=== PATIENT | female | born 1980 | race Caucasian/White ===

== ENCOUNTER → 2016-04-09 | Outpatient (CLI) | payer BC ==
[2016-04-09 20:51] LABS: ALT 50 U/L (9-52); AST 30 U/L (14-36); Alkaline Phosphatase 65 U/L (38-126); Anion Gap 14 mmol/L; Blood Urea Nitrogen 13 mg/dL (7-17); Calcium 9.4 mg/dL (8.4-10.2); Carbon Dioxide 23 mmol/L (22-30); Chloride 103 mmol/L (98-107); Cholesterol 144 mg/dL (<200); Glucose 74 mg/dL (74-99); HDL Cholesterol 29 mg/dL (40-60); Non-African American GFR(MDRD) >60 (>60 ml/min/1.73 sqM); Potassium 4.5 mmol/L (3.5-5.1); Sodium 140 mmol/L (137-145); Total Bilirubin 0.6 mg/dL (0.2-1.3); Total Protein 7.1 g/dL (6.3-8.2); Triglycerides 108 mg/dL (<150)
== END | disposition home or self-care (01) ==
LOC: MMGSC 09:11
PROVIDERS: ATTEND Family Medicine
DX: E78.5 Hyperlipidemia, unspecified (principal)
CPT/HCPCS: 36415; 80053; 80061

== ENCOUNTER → 2017-04-08 | Outpatient (CLI) | payer BC ==
[2017-04-08 18:53] LABS: ALT 26 U/L (9-52); AST 21 U/L (14-36); Albumin 3.9 g/dL (3.5-5.0); Alkaline Phosphatase 64 U/L (38-126); Anion Gap 13 mmol/L; Blood Urea Nitrogen 16 mg/dL (7-17); Calcium 9.4 mg/dL (8.4-10.2); Carbon Dioxide 23 mmol/L (22-30); Chloride 102 mmol/L (98-107); Cholesterol 184 mg/dL (<200); Glucose 76 mg/dL (74-99); HDL Cholesterol 39 mg/dL (40-60); LDL Cholesterol,Calculated 119 mg/dL (0-99); Potassium 4.4 mmol/L (3.5-5.1); Sodium 138 mmol/L (137-145); Total Bilirubin 0.4 mg/dL (0.2-1.3); Total Protein 6.7 g/dL (6.3-8.2); Triglycerides 130 mg/dL (<150)
== END | disposition home or self-care (01) ==
LOC: MMGSC 09:41
PROVIDERS: ATTEND Family Medicine
DX: E78.5 Hyperlipidemia, unspecified (principal)
CPT/HCPCS: 36415; 80053; 80061

== ENCOUNTER → 2019-04-28 | Outpatient (CLI) | payer BC ==
--- NOTE | 2019-04-29 07:35 | CT ---
EXAMINATION TYPE: CT urogram wo/w con DATE OF EXAM: 04/28/2019 HISTORY: micro hematuria CT DLP: 2963mGycm Automated Exposure Control for Dose Reduction was Utilized. CONTRAST: CT scan of the abdomen and pelvis is performed without oral and without and with IV Contrast, patient injected with 100 mL of Isovue 300. Urogram protocol with 3-D reconstructed images created on an [employer] workstation and reviewed. COMPARISON: Complete abdominal ultrasound May 14, 2012. FINDINGS: KUB: Noncontrast images show no renal calculi bilaterally. Postcontrast images show symmetric cortica l medullary uptake and excretion from both kidneys without concerning solid or cystic renal mass or h ydronephrosis seen bilaterally. Visualized portion of ureters shows satisfactory contrast opacificati on with the exception of a portion of the distal right ureter but no obstructing mass or calculus is identified. There is satisfactory filling of the bladder without intraluminal mass or calculus. LUNG BASES: No significant abnormality is appreciated. LIVER/GB: Gallbladder not seen and presumed surgically absent. PANCREAS: No significant abnormality is seen. SPLEEN: No significant abnormality is seen. ADRENALS: No significant abnormality is seen. BOWEL: Normal-appearing appendix seen from base of cecum extending medially for reference coronal cristiane ge 95 series 10. UTERUS/ADNEXA: Anteverted uterus. LYMPH NODES: No greater than 1cm abdominal or pelvic lymph nodes are appreciated. OSSEOUS STRUCTURES: Somewhat small size bilateral T12 ribs. OTHER: No significant additional abnormality is seen. IMPRESSION: Source of microhematuria is not identified. Fairly unremarkable study.
== END | disposition home or self-care (01) ==
LOC: RADCTMAIN 15:15
PROVIDERS: ATTEND Urology
DX: R31.9 Hematuria, unspecified (principal); Z88.0 Allergy status to penicillin; Z88.1 Allergy status to other antibiotic agents; Z88.2 Allergy status to sulfonamides
CPT/HCPCS: 74178; 74400; Q9967

== ENCOUNTER → 2020-05-17 | Outpatient (CLI) | payer BC ==
[2020-05-17 14:11] VITALS: BP 130/88; PULSE 94; RESP 18; TEMP 99.1; BMI 35.2
--- NOTE | 2020-05-17 14:32 | P.HPBAR ---
Bariatric H&P - History & Physicial H&P Date: 05/17/20 History & Physicial: Visit/CC: initial visit Patient initial contact: Initial weight: Initial weight in pounds: Height: 5 ft 6.75 in Initial BMI: Last weight: Current weight: 101.196 kg Current weight in pounds: 223.10 Current BMI: 35.2 [place] body weight (based on NIH guidelines): 60.668 kg Excess body weight loss: The patient is a 40 year-old F who presents for Bariatric Assessment. DATE OF SERVICE: 05/17/2020 REASON FOR CONSULTATION: Initial bariatric evaluation HISTORY OF PRESENT ILLNESS: Georgia Hairston is a 40-year-old female who comes with lifelong morbid obesity. She is looking into gastrectomy procedures. She has tried Ali, [id number] weight loss tablets, Slim Fast, Metabolife, and Adipex. She did [facility] for weight loss including high protein lifestyle changes. She has been trying to lose weight after the of her children. Her weight became more un-controlled after children. She lost the most weight with restrictive diets. She saw dietitians in the past. Most weight loss was through the [facility] including exercising until she had blood in her stools but the program was not sustainable. Her highest weight was 230 pounds. She lost 40 pounds over 2 years for the [facility]. Her father, uncle, and aunt have troubles their with weight including obesity. No reports of stomach or esophageal cancer. She denies any further blood in her stools. She has infrequent heartburn. She denies ulcerative colitis in the family. No reports of food allergies. She does not have her gallbladder. Her aunt had deep venous thromboses. She denies known heart problems. She reports osteoarthritis including lower back pain, sciatica, osteoarthritis of the knee and ankle and left leg. She has undergone physical therapy. She has sleep apnea. She has hyperlipidemia. She presents me first time in consultation for management of morbid obesity At height of 5 feet 6.75 inches, her ideal body weight is 154 pounds. Her highest weight was 230 pounds, BMI 36.4. She comes in 223 pounds. Her body mass index is 35.2. She is 69 pounds overweight. PAST MEDICAL HISTORY: 1. Morbid obesity due to excess calories 2. Body mass index of 45.0, initial 3. Sleep apnea 4. Hyperlipidemia 5. Osteoarthritis lower back 6. Sciatica 7. Osteoarthritis ankle, left 8. Osteoarthritis knee, left 9. Depressive disorder 10. Hypertensive heart disease 11. Anxiety disorder PAST SURGICAL HISTORY: 1. Cholecystectomy HOME MEDICATIONS: Home Medications Medication Instructions Recorded Confirmed Atorvastatin [Lipitor] 5 mg PO DAILY 05/17/20 05/17/20 Cholecalciferol [Vitamin D3 (25 50 mcg PO DAILY 05/17/20 05/17/20 Mcg = 1000 Iu)] Clindamycin Phos/Benzoyl Perox 1 applic TOPICAL BID PRN 05/17/20 05/17/20 [Benzaclin Gel] Cyanocobalamin (Vitamin B-12) 1,000 mcg PO DAILY 05/17/20 05/17/20 [Vitamin B-12] Desvenlafaxine [Desvenlafaxine ER] 100 mg PO DAILY 05/17/20 05/17/20 Melatonin 10 mg PO DAILY 05/17/20 05/17/20 Multivitamin [Multivitamins Adult 1 each PO DAILY 05/17/20 05/17/20 Gummies] Prazosin [Minipress] 2 mg PO DAILY 05/17/20 05/17/20 Spironolactone [Aldactone] 75 mg PO DAILY 05/17/20 05/17/20 Tretinoin [Tretinoin 0.05%] 1 applic TOPICAL DAILY PRN 05/17/20 05/17/20 buPROPion HCL [Wellbutrin XL] 300 mg PO DAILY 05/17/20 05/17/20 hydrOXYzine HCL 50 mg PO DAILY 05/17/20 05/17/20 metroNIDAZOLE 0.75% CREAM 1 applic TOPICAL BID 05/17/20 05/17/20 [Metrocream] ALLERGIES: Allergies Allergy/AdvReac Type Severity Reaction Status Date / Time Penicillins Allergy Unknown Verified 05/17/20 15:02 sulfamethoxazole Allergy Unknown Verified 05/17/20 15:02 [From Bactrim] trimethoprim [From Bactrim] Allergy Unknown Verified 05/17/20 15:02 SOCIAL HISTORY: No past tobacco use. FAMILY HISTORY: No family history of ulcerative colitis disease or Crohn's disease. Family history of morbid obesity. No lupus in the family. No reports of stomach or esophageal cancer. Her aunt had deep venous thromboses. Her father, uncle, and aunt have troubles their with weight including obesity. REVIEW OF ORGAN SYSTEMS: CONSTITUTIONAL: At height of 5 feet 6.75 inches, her ideal body weight is 154 p ounds. Her highest weight was 230 pounds, BMI 36.4. She comes in 223 pounds. Her body mass index is 35.2. She is 69 pounds overweight. HEENT: Denies any active troubles with vision or hearing. No troubles with swallowing. ENDOCRINE: Denies diabetes. No hypothyroidism. CARDIOVASCULAR: Denies reports of palpitations or heart attacks or chest pain. Has hypertensive heart disease. Has hyperlipidemia RESPIRATORY: Has daytime somnolence. Has asthma. Has sleep apnea GASTROINTESTINAL: Denies any bright red blood per rectum. Past colonoscopies. Has gastroesophageal reflux disease. GENITOURINARY: Denies bladder urgency. No recent blood in urine MUSCULOSKELETAL: Has lower back pain and joint pain. She reports osteoarthritis including lower back pain, sciatica, osteoarthritis of the knee and ankle and left leg. NEURO: No headaches. No seizure disorders. PSYCH: Has depression disorder. No suicidal ideation. Has anxiety disorder. RHEUMATOLOGIC: No lupus. No rheumatoid arthritis. HEMATOLOGIC: Denies any abnormal bleeding or bruising. No past history of DVTs. SKIN: No rash. No skin cancer. PHYSICAL EXAM: VITAL SIGNS: Height 5 foot 6.75 inches, weight 223 pounds. BMI 35.2 GENERAL: Well-developed in no acute distress. HEENT: No scleral icterus. Extraocular movements grossly intact. Hears conversational speech. No nasal drainage. NECK: Supple without lymphadenopathy. CHEST: Nonlabored respirations with equal bilateral excursions. CARDIOVASCULAR: Regular rate and regular rhythm. Distal 2+ pulses. ABDOMEN: Obese, soft, nontender, nondistended. MUSCULOSKELETAL: No clubbing, cyanosis. NEURO: No focal or lateralizing signs. Cranial nerves 2 through 12 grossly within normal limits. PSYCH: Appropriate affect. Alert and oriented to person, place and time. SKIN: Good skin turgor. Well perfused. ASSESSMENT: 1. Morbid obesity due to excess calories 2. Body mass index of 45.0, initial 3. Sleep apnea 4. Hyperlipidemia 5. Osteoarthritis lower back 6. Sciatica 7. Osteoarthritis ankle, left 8. Osteoarthritis knee, left 9. Depressive disorder 10. Hypertensive heart disease 11. Anxiety disorder 12. Family history morbid obesity 13. Family history of DVT PLAN: 1. Surgical options including a band, gastric bypass, sleeve gastrectomy were described. She is looking into the sleeve gastrectomy. 2. Recommend upper endoscopy. 3. Recommend a bariatric metabolic panel to evaluate for micro- including macronutrient deficiencies. 4. For history of daytime somnolence, recommend evaluation and treatment for sleep apnea. 5. Dietary surveillance and counseling was reviewed. Increased protein intake over 65 grams daily advised. 6. Will need cardiac risk assessment. 7. Recommend medical risk assessment. 8. Psych assessment per insurance guidelines. 9. The [place] bariatric surgical collaborative data and outcomes calculator were described with surgical options. [facility] reviewed with risks under 3 to 7% with gastrectomy procedures. Thank you for this consultation. Past Medical History Past Medical History: No Reported History History of Any Multi-Drug Resistant Organisms: None Reported Past Surgical History: Cholecystectomy Past Anesthesia/Blood Transfusion Reactions: No Reported Reaction Past Psychological History: Anxiety, Depression Smoking Status: Never smoker Past Alcohol Use History: Rare Past Drug Use History: None Reported Surgical - Exam Vital Signs Temp Pulse Resp BP 99.1 F 94 18 130/88 05/17/20 14:04 05/17/20 14:04 05/17/20 14:04 05/17/20 14:04 Results - Labs 05/17/20 15:00 05/17/20 15:00 Bariatric Checklist Checklist: Plan: Checklist: EGD: 1. Hiatal hernia: 2. H. Pylori: HgbA1c: Vitamin D: Smoking: Never smoker Primary care physician referral: Dr. Ramos Psychiatry clearance: Cardiology clearance: Sleep study: Diet journal: VTE risk score: VTE risk level: Rehab needs at discharge:
[2020-05-17 15:32] LABS: HCT 43.1 % (34.0-46.0); HGB 14.7 gm/dL (11.4-16.0); MCV 91.2 fL (80.0-100.0); Mean Platelet Volume 6.7; Platelet Count 250 k/uL (150-450); RBC 4.73 m/uL (3.80-5.40); RDW 13.5 % (11.5-15.5); WBC 10.1 k/uL (3.8-10.6)
[2020-05-17 23:30] LABS: Partial Thromboplastin Time 27.1 sec (23.5-31.0); Prothrombin Time 10.9 sec (9.9-11.9)
[2020-05-18 02:12] LABS: Hemoglobin A1C 5.9 % (4.0-6.0)
[2020-05-18 02:46] LABS: % Iron Saturation 27.03 (12.00-45.00); ALT 30 U/L (8-44); AST 24 U/L (13-35); Albumin/Globulin Ratio 2.19 (1.60-3.17); Alkaline Phosphatase 70 U/L (41-126); BUN/Creat Ratio 18.89 Ratio (12.00-20.00); Calcium 10.3 mg/dL (8.7-10.3); Chloride 104 mmol/L (96-109); Chol/HDL Ratio 3.98; Cholesterol 175 mg/dL (0-200); Globulin 2.1 g/dL (1.6-3.3); Glucose 109 mg/dL (70-110); Iron 93 ug/dL (50-170); LDL Cholesterol,Calculated 90.4 mg/dL (0.0-131.0); Non-African American GFR(CKD) 79.4 (60.0-200.0); Potassium 4.3 mmol/L (3.5-5.5); Sodium 140 mmol/L (135-145); Total Bilirubin 0.2 mg/dL (0.3-1.2); Total Iron Binding Capacity 344 ug/dL (228-460); Total Protein 6.7 g/dL (6.2-8.2)
[2020-05-18 02:55] LABS: Ferritin 213.8 ng/mL (10.0-291.0)
[2020-05-18 03:57] LABS: Folate, Serum >24.0 ng/mL
[2020-05-18 13:16] LABS: Zinc, Serum 35 ug/dL (60-130)
[2020-05-19 10:33] LABS: Vitamin A 65 ug/dL (38-106)
[2020-05-19 10:47] LABS: Vit B1(Thiamine) 84 ug/L (38-122)
[2020-05-21 17:51] LABS: Selenium 134 mcg/L (63-160)
== END ==
LOC: BARWHC3 13:18
PROVIDERS: ATTEND Surgery Plastic and Reconstructive Surgery
DX: E66.01 Morbid (severe) obesity due to excess calories (principal); G47.30 Sleep apnea, unspecified; E78.5 Hyperlipidemia, unspecified; M47.9 Spondylosis, unspecified; M54.30 Sciatica, unspecified side; M17.12 Unilateral primary osteoarthritis, left knee; M19.072 Primary osteoarthritis, left ankle and foot; F32.9 Major depressive disorder, single episode, unspecified; I11.9 Hypertensive heart disease without heart failure; F41.9 Anxiety disorder, unspecified; Z83.49 Family history of other endocrine, nutritional and metabolic diseases; Z83.2 Family history of diseases of the blood and blood-forming organs and certain disorders involving the immune mechanism; Z68.35 Body mass index [BMI] 35.0-35.9, adult
CPT/HCPCS: 80053; 80061; 82306; 82525; 82607; 82728; 82746; 83036; 83540; 83550; 83735; 83970; 84100; 84134; 84255; 84425; 84443; 84590; 84630; 85027; 85610; 85730; 93005; 99211

== ENCOUNTER → 2020-05-24 | Outpatient (CLI) | payer BC ==
--- NOTE | 2020-05-24 21:54 | CONS ---
CONSULTATION DATE OF SERVICE: 05/24/2020 40-year-old lady has been evaluated in [facility] for possible obstructive sleep apnea-hypopnea syndrome. HISTORY OF PRESENT ILLNESS SLEEP WAKE EVALUATION: SLEEP SCHEDULE: Patient usual sleep schedule on weekdays from 9 to 9:30 p.m. to 5 a.m. and on weekends from 9:00 to 9:30 p.m. to 8 a.m. FALLING ASLEEP: Sometimes she has problems with falling asleep, has TV set in bedroom. DURING SLEEP: She usually sleeps on the side position. According to her , she snores and has episodes of stopped breathing during sleep. Sometimes she wakes up from sleep gasping for air, grinding teeth and nightmares. Nocturia up to one time at night. DURING THE DAY/SLEEP WAKE EVALUATION: In the morning, patient wakes up tired, falling asleep during the day. Has episodes of depression, anxiety, sexual dysfunction. [place] Sleepiness Scale significantly increased to 14. She may take one nap afternoon. Sometimes may see dreams during nap. No clear history of hypnagogic hallucinations. Nightmares she has practically every night, some improvements after she was started on treatment with . PAST MEDICAL HISTORY: Positive for apnea, hyperlipidemia, anxiety, depression, headaches. PAST SURGICAL HISTORY: Cholecystectomy. MEDICATIONS: Prazosin 2 mg once a day. Hydroxyzine 50 mg once a day, and extended release 100 mg once a day. Spironolactone 75 mg once daily, bupropion 300 mg once a day, atorvastatin 5 mg once a day, vitamins and melatonin. SOCIAL HISTORY: Negative for smoking or using alcohol. FAMILY HISTORY: High cholesterol. REVIEW OF SYSTEMS: Awakenings from sleep, sleepiness during the day, snoring, episodes of stopped breathing during sleep, nightmares. PHYSICAL EXAMINATION: GENERAL: lady without distress. BP 166/95, HR 93, RR 12, height 5 feet 7-1/2 inches, weight 226.4, temperature 98.7, oxygen saturation at room air 96%, BMI 34.8. Oropharynx: Big uvula. Wide pillars. Small oropharyngeal air space. Neck 15.5 inches in circumference. NECK: Supple, no JVD. Thyroid is not palpable. LUNGS: Clear to percussion and to auscultation. Good air exchange. No wheezing or rhonchi. HEART: S1, S2 regular. No murmurs, gallops, or rubs. ABDOMEN: Slightly obese. Soft and nontender. Bowel sounds are present. No organomegaly appreciated. EXTREMITIES: No clubbing or cyanosis. MOUNTAIN GUIDE: Awake, alert, and oriented X3. Cranial nerves 2 to 7 intact. There is no fasciculation or atrophy. noted. No focal deficits observed. IMPRESSION: 1. Snoring, witnessed episodes of stopped breathing during sleep. Small oropharyngeal air space. Sleepiness, obstructive sleep apnea-hypopnea syndrome. 2. Nightmares. 3. [place] Sleepiness Scale significantly increased to 14. Differential diagnosis should include hypersomnia if sleep study will be negative for obstructive sleep apnea-hypopnea syndrome. 4. Hypertension in the office. 5. History of apnea. 6. Hyperlipidemia. 7. Anxiety. 8. Depression. 9. Episodes of headaches. 10.Status post cholecystectomy. PLAN: 1. Home sleep apnea test for evaluation of patient's breathing during sleep. 2. Following plan after reviewing results of sleep study. If sleep study will be negative, may consider PSG with MSLT after discussing the results of the sleep study with the patient. 3. Preferable position during sleep on the side. 4. No driving if patient feels any sleepiness. 5. I will see patient for follow up visit to explain results of testing and following plan. Thank you very much for referring this patient for consultation. Sincerely, Don Sandoval MD, PhD, FAASM Diplomat of [employer] [employer] Customer Retention Representative of [facility] [place] MMODL / IJN: [id number] /
== END | disposition home or self-care (01) ==
CPT/HCPCS: 99211

== ENCOUNTER 2020-07-03 06:52 | Day surgery (SDC) | payer BC ==
[2020-06-28 15:20] VITALS: BMI 36.6
[~2020-07-03 06:52] MED LIST: LACTATED RINGERS 1,000 ML IV SCH
[2020-07-03 07:18] VITALS: RESP 16; TEMP 97.4
--- NOTE | 2020-07-03 07:42 | P.GSHP ---
History of Present Illness H&P Date: 07/03/20 CHIEF COMPLAINT: GERD HISTORY OF PRESENT ILLNESS: The patient is a 40-year-old female who presents reports gastroesophageal reflux disease. Upper endoscopy was offered for further evaluation and management. PAST MEDICAL HISTORY: Please see list. PAST SURGICAL HISTORY: Please see list. MEDICATIONS: Please see list. ALLERGIES: Please see list. SOCIAL HISTORY: No illicit drug use FAMILY HISTORY: No reports of Crohn disease or ulcerative colitis. REVIEW OF ORGAN SYSTEMS: CONSTITUTIONAL: No reports of fevers or chills. GI: Denies any blood in stools or constipation. PHYSICAL EXAM: VITAL SIGNS: Stable GENERAL: Well-developed and pleasant in no acute distress. HEENT: No scleral icterus. Extraocular movements grossly intact. Moist buccal mucosa. NECK: Supple without lymphadenopathy. CHEST: Unlabored respirations. Equal bilateral excursions. CARDIOVASCULAR: Regular rate and rhythm. Distal 2+ pulses. ABDOMEN: Soft, nondistended. MUSCULOSKELETAL: No clubbing, cyanosis, or edema. ASSESSMENT: 1. Gastroesophageal reflux disease PLAN: 1. Recommend proceeding with an upper endoscopy Past Medical History Past Medical History: Hyperlipidemia, Hypertension History of Any Multi-Drug Resistant Organisms: None Reported Past Surgical History: Cholecystectomy Past Anesthesia/Blood Transfusion Reactions: No Reported Reaction Smoking Status: Never smoker - Past Family History Mother Family Medical History: No Reported History Medications and Allergies Home Medications Medication Instructions Recorded Confirmed Type Atorvastatin [Lipitor] 5 mg PO HS 05/17/20 06/28/20 History Cholecalciferol [Vitamin D3 (25 50 mcg PO DAILY 05/17/20 06/28/20 History Mcg = 1000 Iu)] Clindamycin Phos/Benzoyl Perox 1 applic TOPICAL BID PRN 05/17/20 06/28/20 History [Benzaclin Gel] Cyanocobalamin (Vitamin B-12) 1,000 mcg PO DAILY 05/17/20 06/28/20 History [Vitamin B-12] Desvenlafaxine [Desvenlafaxine ER] 100 mg PO HS 05/17/20 06/28/20 History Melatonin 10 mg PO DAILY 05/17/20 06/28/20 History Multivitamin [Multivitamins Adult 1 each PO DAILY 05/17/20 06/28/20 History Gummies] Prazosin [Minipress] 2 mg PO HS 05/17/20 06/28/20 History Spironolactone [Aldactone] 75 mg PO DAILY 05/17/20 06/28/20 History Tretinoin [Tretinoin 0.05%] 1 applic TOPICAL DAILY PRN 05/17/20 06/28/20 History buPROPion HCL [Wellbutrin XL] 300 mg PO DAILY 05/17/20 06/28/20 History hydrOXYzine HCL 50 mg PO DAILY 05/17/20 06/28/20 History metroNIDAZOLE 0.75% CREAM 1 applic TOPICAL BID PRN 05/17/20 06/28/20 History [Metrocream] Cryselle-28 1 tablet PO DAILY 06/28/20 06/28/20 History Allergies Allergy/AdvReac Type Severity Reaction Status Date / Time Penicillins Allergy Rash/Hives Verified 07/03/20 07:19 sulfamethoxazole Allergy Rash/Hives Verified 07/03/20 07:19 [From Bactrim] trimethoprim [From Bactrim] Allergy Rash/Hives Verified 07/03/20 07:19 Surgical - Exam Vital Signs Temp Pulse Resp BP Pulse Ox 97.4 F L 104 H 16 155/90 97 07/03/20 07:17 07/03/20 07:17 07/03/20 07:17 07/03/20 07:17 07/03/20 07:17
[2020-07-03] MEDS ORDERED: PROPOFOL 10 MG/ML 20 ML VIAL IV ONE (07:59)
[2020-07-03] MEDS ORDERED: GLYCOPYRROLATE 0.2 MG/ML 2 ML VIAL ONE (07:59)
[2020-07-03] MEDS ORDERED: LIDOCAINE 1% INJ 10MG/ML (20 ML MDV) ONE (07:59)
--- NOTE | 2020-07-03 08:13 | P.PCN ---
Date of Procedure: 07/03/20 Description of Procedure: PREOPERATIVE DIAGNOSIS: Gastroesophageal reflux disease. Morbid obesity. POSTOPERATIVE DIAGNOSIS: Morbid obesity. Gastritis. Gastroesophageal reflux disease. OPERATION: Esophagogastroduodenoscopy with biopsies along antrum. SURGEON: Evi Chowdary MD ANESTHESIA: MAC. INDICATIONS: The patient is a 40-year-old female who presents with a history of reflux disease. Benefits and risks of the procedure were described. Informed consent was obtained. DESCRIPTION: The patient was brought into the endoscopy suite and laid in the left lateral decubitus position. An Olympus gastroscope was passed along the posterior oropharynx down to the distal esophagus where the squamocolumnar junction was encountered at 38 cm from the incisors. The stomach was entered and no bile reflux was found. Additional findings are listed below. Biopsies with cold forceps were obtained of the antrum. The first through third portion of the duodenum was examined and unremarkable. Retroflexion of the scope confirmed Hill grade 1 lower esophageal valve. The squamocolumnar junction demonstrated no LA grade A erosive esophagitis. The stomach was desufflated. The patient tolerated the procedure well. FINDINGS: Squamocolumnar junction 38 cm from the incisors. Diaphragmatic hiatus at 38 cm. Hill grade 2 lower esophageal valve. No LA grade A erosive esophagitis. No active duodenitis. Chronic gastritis RECOMMENDATIONS: Upper endoscopy as needed. Plan - Discharge Summary Discharge Rx Participant: No New Discharge Prescriptions: Continue Multivitamin [Multivitamins Adult Gummies] 1 each PO DAILY metroNIDAZOLE 0.75% CREAM [Metrocream] 1 applic TOPICAL BID PRN PRN Reason: Acne Tretinoin [Tretinoin 0.05%] 1 applic TOPICAL DAILY PRN PRN Reason: See Comments buPROPion HCL [Wellbutrin XL] 300 mg PO DAILY Prazosin [Minipress] 2 mg PO HS Desvenlafaxine [Desvenlafaxine ER] 100 mg PO HS hydrOXYzine HCL 50 mg PO DAILY Spironolactone [Aldactone] 75 mg PO DAILY Cyanocobalamin (Vitamin B-12) [Vitamin B-12] 1,000 mcg PO DAILY Cholecalciferol [Vitamin D3 (25 Mcg = 1000 Iu)] 50 mcg PO DAILY Melatonin 10 mg PO DAILY Clindamycin Phos/Benzoyl Perox [Benzaclin Gel] 1 applic TOPICAL BID PRN PRN Reason: See Comments Atorvastatin [Lipitor] 5 mg PO HS Crylle-28 1 tablet PO DAILY Discharge Medication List Atorvastatin [Lipitor] 5 mg PO HS 05/17/20 [History] Cholecalciferol [Vitamin D3 (25 Mcg = 1000 Iu)] 50 mcg PO DAILY 05/17/20 [History] Clindamycin Phos/Benzoyl Perox [Benzaclin Gel] 1 applic TOPICAL BID PRN 05/17/20 [History] Cyanocobalamin (Vitamin B-12) [Vitamin B-12] 1,000 mcg PO DAILY 05/17/20 [History] Desvenlafaxine [Desvenlafaxine ER] 100 mg PO HS 05/17/20 [History] Melatonin 10 mg PO DAILY 05/17/20 [History] Multivitamin [Multivitamins Adult Gummies] 1 each PO DAILY 05/17/20 [History] Prazosin [Minipress] 2 mg PO HS 05/17/20 [History] Spironolactone [Aldactone] 75 mg PO DAILY 05/17/20 [History] Tretinoin [Tretinoin 0.05%] 1 applic TOPICAL DAILY PRN 05/17/20 [History] buPROPion HCL [Wellbutrin XL] 300 mg PO DAILY 05/17/20 [History] hydrOXYzine HCL 50 mg PO DAILY 05/17/20 [History] metroNIDAZOLE 0.75% CREAM [Metrocream] 1 applic TOPICAL BID PRN 05/17/20 [History] Cryselle-28 1 tablet PO DAILY 06/28/20 [History] [facility]Ref[place] [place] Patient Instructions/Handouts: Gastritis (DC) Discharge Disposition: HOME SELF-CARE
[2020-07-03 08:33] VITALS: BP 132/87; PULSE 88
== END 2020-07-03 08:58 | disposition home or self-care (01) ==
LOC: ORWHC2ENDO 06:52
PROVIDERS: ATTEND Surgery Plastic and Reconstructive Surgery
DX: K29.50 Unspecified chronic gastritis without bleeding (principal); K21.9 Gastro-esophageal reflux disease without esophagitis; E66.01 Morbid (severe) obesity due to excess calories; I10 Essential (primary) hypertension; E78.5 Hyperlipidemia, unspecified; Z79.899 Other long term (current) drug therapy; Z88.0 Allergy status to penicillin; Z88.2 Allergy status to sulfonamides
CPT/HCPCS: 81025; 88305; 43239; J2001; J2704

== ENCOUNTER → 2020-07-12 | Outpatient (CLI) | payer BC ==
[2020-07-12 14:02] VITALS: BP 153/107; PULSE 108; RESP 18; TEMP 98.2; BMI 35.8
--- NOTE | 2020-07-12 14:28 | P.PN ---
Subjective Progress Note Date: 07/12/20 DATE OF SERVICE: 07/12/2020 CHIEF COMPLAINT: Morbid obesity HISTORY OF PRESENT ILLNESS: Georgia Hairston is a 40-year-old female who has been trying to lose weight after the of her children. Her weight became more un-controlled after children. As a result of her morbid obesity, she has developed osteoarthritis including lower back, sciatica, osteoarthritis of the knee and ankle and left leg. She has sleep apnea. She has hyperlipidemia. She completed a stress echo and is in 3 months medical supervised weight loss. She is looking into the gastric bypass. At height of 5 feet 6.75 inches, her ideal body weight is 154 pounds. Her highest weight was 230 pounds, BMI 36.4. She comes in 227 pounds from 223 pounds, 2 months ago. She has gained 4 pounds in 2 months. Her body mass index is 35.8. She is 73 pounds overweight. PAST MEDICAL HISTORY: 1. Morbid obesity due to excess calories 2. Body mass index of 36.4, initial 3. Sleep apnea 4. Hyperlipidemia 5. Osteoarthritis lower back 6. Sciatica 7. Osteoarthritis ankle, left 8. Osteoarthritis knee, left 9. Depressive disorder 10. Hypertensive heart disease 11. Anxiety disorder PAST SURGICAL HISTORY: 1. Cholecystectomy HOME MEDICATIONS: Home Medications Medication Instructions Recorded Confirmed Atorvastatin [Lipitor] 5 mg PO DAILY 05/17/20 05/17/20 Cholecalciferol [Vitamin D3 (25 50 mcg PO DAILY 05/17/20 05/17/20 Mcg = 1000 Iu)] Clindamycin Phos/Benzoyl Perox 1 applic TOPICAL BID PRN 05/17/20 05/17/20 [Benzaclin Gel] Cyanocobalamin (Vitamin B-12) 1,000 mcg PO DAILY 05/17/20 05/17/20 [Vitamin B-12] Desvenlafaxine [Desvenlafaxine ER] 100 mg PO DAILY 05/17/20 05/17/20 Melatonin 10 mg PO DAILY 05/17/20 05/17/20 Multivitamin [Multivitamins Adult 1 each PO DAILY 05/17/20 05/17/20 Gummies] Prazosin [Minipress] 2 mg PO DAILY 05/17/20 05/17/20 Spironolactone [Aldactone] 75 mg PO DAILY 05/17/20 05/17/20 Tretinoin [Tretinoin 0.05%] 1 applic TOPICAL DAILY PRN 05/17/20 05/17/20 buPROPion HCL [Wellbutrin XL] 300 mg PO DAILY 05/17/20 05/17/20 hydrOXYzine HCL 50 mg PO DAILY 05/17/20 05/17/20 metroNIDAZOLE 0.75% CREAM 1 applic TOPICAL BID 05/17/20 05/17/20 [Metrocream] ALLERGIES: Allergies Allergy/AdvReac Type Severity Reaction Status Date / Time Penicillins Allergy Unknown Verified 05/17/20 15:02 sulfamethoxazole Allergy Unknown Verified 05/17/20 15:02 [From Bactrim] trimethoprim [From Bactrim] Allergy Unknown Verified 05/17/20 15:02 SOCIAL HISTORY: No past tobacco use. FAMILY HISTORY: No family history of ulcerative colitis disease or Crohn's disease. Family history of morbid obesity. No lupus in the family. No reports of stomach or esophageal cancer. Her aunt had deep venous thromboses. Her father, uncle, and aunt have troubles their with weight including obesity. REVIEW OF ORGAN SYSTEMS: CONSTITUTIONAL: At height of 5 feet 6.75 inches, her ideal body weight is 154 pounds. Her highest weight was 230 pounds, BMI 36.4. She comes in 223 pounds. Her body mass index is 35.2. She is 69 pounds overweight. HEENT: Denies any active troubles with vision or hearing. No troubles with swallowing. ENDOCRINE: Denies diabetes. No hypothyroidism. CARDIOVASCULAR: Denies reports of palpitations or heart attacks or chest pain. Has hypertensive heart disease. Has hyperlipidemia RESPIRATORY: Has daytime somnolence. Has asthma. Has sleep apnea GASTROINTESTINAL: Denies any bright red blood per rectum. Past colonoscopies. Has gastroesophageal reflux disease. GENITOURINARY: Denies bladder urgency. No recent blood in urine MUSCULOSKELETAL: Has lower back pain and joint pain. She reports osteoarthritis including lower back pain, sciatica, osteoarthritis of the knee and ankle and left leg. NEURO: No headaches. No seizure disorders. PSYCH: Has depression disorder. No suicidal ideation. Has anxiety disorder. RHEUMATOLOGIC: No lupus. No rheumatoid arthritis. HEMATOLOGIC: Denies any abnormal bleeding or bruising. No past history of DVTs. SKIN: No rash. No skin cancer. PHYSICAL EXAM: VITAL SIGNS: Height 5 foot 6.75 inches, weight 226 pounds. BMI 35.8 Vital Signs Temp 98.2 F 07/12/20 13:56 Pulse 108 H 07/12/20 13:56 Resp 18 07/12/20 13:56 BP 153/107 07/12/20 13:56 Pulse Ox GENERAL: Well-developed in no acute distress. HEENT: No scleral icterus. Extraocular movements grossly intact. Hears conversational speech. No nasal drainage. NECK: Supple without lymphadenopathy. CHEST: Nonlabored respirations with equal bilateral excursions. CARDIOVASCULAR: Tachycardic ABDOMEN: Obese, soft, nontender, nondistended. MUSCULOSKELETAL: No clubbing, cyanosis. NEURO: No focal or lateralizing signs. Cranial nerves 2 through 12 grossly within normal limits. PSYCH: Appropriate affect. Alert and oriented to person, place and time. SKIN: Good skin turgor. Well perfused. LABS: Triglycerides elevated, Zinc is low, Hgb A1c elevated 5.9% EKG: Abnormal. Left atrial enlargement, incomplete right bundle branch block REPORTS: Sleep study with excessive daytime sleepiness. EGD FINDINGS: Squamocolumnar junction 38 cm from the incisors. Diaphragmatic hiatus at 38 cm. Hill grade 2 lower esophageal valve. No LA grade A erosive esophagitis. No active duodenitis. Chronic gastritis Final Pathologic Diagnosis GASTRIC ANTRUM, BIOPSY: Minimal chronic gastritis. Helicobacter pylori organisms are not identified on routine H+E sections. ASSESSMENT: 1. Morbid obesity due to excess calories 2. Body mass index of 36.4 initial to 35.8 3. Excessive daytime sleepiness 4. Hyperlipidemia 5. Osteoarthritis lower back 6. Sciatica 7. Osteoarthritis ankle, left 8. Osteoarthritis knee, left 9. Depressive disorder 10. Hypertensive heart disease 11. Anxiety disorder 12. Family history morbid obesity 13. Family history of DVT 14. Abnormal EKG 15. Zinc deficiency 16. Hypertriglyceridemia 17. Chronic gastritis. PLAN: 1. Her EKG is abnorma and as a stress echo. Cardiology clearance is pending. 2. Her Hgb A1c is elevated for diabetes risk. Adjust diet to low carbohydrate, high protein intake, 65 grams daily. 3. Zinc 50 mg daily advised. 4. Continue with medical supervised weight loss. 5. She is looking into the gastric bypass and recommend maintaining at least 223 pounds. Objective - Vital Signs Vital signs: Vital Signs Temp 98.2 F 07/12/20 13:56 Pulse 108 H 07/12/20 13:56 Resp 18 07/12/20 13:56 BP 153/107 07/12/20 13:56 Pulse Ox Intake & Output 07/11/20 07/12/20 07/12/20 18:59 06:59 18:59 Weight 102.965 kg
== END | disposition home or self-care (01) ==
LOC: BARWHC3 13:15
PROVIDERS: ATTEND Surgery Plastic and Reconstructive Surgery
DX: E66.01 Morbid (severe) obesity due to excess calories (principal); E78.5 Hyperlipidemia, unspecified; M47.9 Spondylosis, unspecified; M54.30 Sciatica, unspecified side; M19.072 Primary osteoarthritis, left ankle and foot; M17.12 Unilateral primary osteoarthritis, left knee; F32.9 Major depressive disorder, single episode, unspecified; I11.9 Hypertensive heart disease without heart failure; F41.9 Anxiety disorder, unspecified; E78.1 Pure hyperglyceridemia; R94.31 Abnormal electrocardiogram [ECG] [EKG]; K29.50 Unspecified chronic gastritis without bleeding; Z88.1 Allergy status to other antibiotic agents; Z88.2 Allergy status to sulfonamides; Z88.0 Allergy status to penicillin; Z83.49 Family history of other endocrine, nutritional and metabolic diseases; Z82.49 Family history of ischemic heart disease and other diseases of the circulatory system; Z68.36 Body mass index [BMI] 36.0-36.9, adult
CPT/HCPCS: 99211

== ENCOUNTER → 2020-08-17 | Outpatient (CLI) | payer BC ==
--- NOTE | 2020-08-17 22:15 | SFUN ---
SLEEP CENTER FOLLOW UP NOTE DATE OF SERVICE: 08/17/2020 40-year-old lady has been followed in Sleep Center to discuss results of the sleep studies and following plan. Recently the patient had polysomnogram with multiple sleep latency test. Polysomnogram again did not show any abnormalities of respiration. Total apnea-hypopnea index 0. Lowest oxygen level was 90.8%. At the same time EMG showed 44.3 periodic limb movements per hours, 14.1 microarousals per hour. Multiple sleep latency test on the following day consisted from 5 naps and mean sleep latency by 5 naps was totally normal at 12 minutes. If count only first 4 naps, it will be 9.975 minutes, which is slightly below 10 minutes and may indicate slight sleepiness but definitely does not indicate narcolepsy or idiopathic hypersomnia. I discussed all this results with the patient in details. She continued to feel some sleepiness. [place] Sleepiness Scale today is 15. She does not feel any significant movements of her legs during the night. MEDICATIONS: Prazosin 2 mg once a day. Hydroxyzine 50 mg once a day, spironolactone 75 mg once a day, bupropion, atorvastatin 5 mg once a day. PHYSICAL EXAMINATION: GENERAL: Patient in no distress. BP 158/97, HR 96, RR 16, height 5 and 7 inches, weight 225, body mass index 35.2, temperature 97.9 oxygen saturation at room air 97%. HEENT: PERRLA, EOMI, evaluation of oropharynx showed tongue protrudes midline. NECK: Supple, no JVD. Thyroid is not palpable. LUNGS: Clear to percussion and to auscultation. Good air exchange. No wheezing or rhonchi. HEART: S1, S2 regular. No murmurs, gallops, or rubs. ABDOMEN: Slightly obese. Soft and nontender. Bowel sounds are present. No organomegaly appreciated. EXTREMITIES: No clubbing or cyanosis. GEOGRAPHIC ANALYST: Awake, alert, and oriented X3. Cranial nerves 2 to 7 intact. There is no fasciculation or atrophy. noted. No focal deficits observed. IMPRESSION: 1. No respiratory abnormalities during the sleep test. 2. Periodic limb movements have been documented 44 times per hour with 14.1 microarousals per hour. 3. Multiple sleep latency test to rule out narcolepsy and idiopathic hypersomnia ruled out. 4. History of nightmares. 5. History of hypertension in the office. 6. Hyperlipidemia. 7. Anxiety. 8. Depression. 9. Episodes of headaches. 10.Status post cholecystectomy. PLAN: 1. We will try small doses of dopaminergic agonist Mirapex 0.125 mg 1-2 tablets at bedtime to prevent periodic limb movements with a goal to decrease amount of microarousals during the sleep, subsequently improved quality of sleep and hopefully improve alertness during the day. If no improvements of dopaminergic agonists, medication will be stopped. 2. Please check iron profile, including ferritin level. Low level of iron may increase risk for periodic limb movements. 3. SSRIs may increase risk for periodic limb movements. 4. Precautions related to driving. No driving if feeling sleepiness. 5. Watching and losing weight. 6. Sleep hygiene with regular time in bed for 7-1/2 to 8 hours. 7. Precautions related to drive. No driving if feeling sleepiness. Thank you very much for allowing me to participate in management of your patient. Sincerely, Don Sandoval MD, PhD, FAASM Diplomat of [place] [employer] [place] [employer] Med Admin of [facility] Geff MMODL / IJN: [id number] /
== END | disposition home or self-care (01) ==
LOC: SLEEP 13:04
PROVIDERS: ATTEND Internal Medicine
DX: G47.61 Periodic limb movement disorder (principal); E78.5 Hyperlipidemia, unspecified; F41.9 Anxiety disorder, unspecified; F32.9 Major depressive disorder, single episode, unspecified; Z90.49 Acquired absence of other specified parts of digestive tract; Z86.69 Personal history of other diseases of the nervous system and sense organs

== ENCOUNTER → 2020-10-04 | Outpatient (CLI) | payer BC ==
[2020-10-04 14:59] VITALS: BP 145/96; PULSE 98; RESP 16; TEMP 99.7; BMI 36.3
--- NOTE | 2020-10-04 15:28 | P.PN ---
Subjective Progress Note Date: 10/04/20 She is looking into a gastric bypass. She is 7 months. Consent reviewed in detail. NSQIP presented. Objective - Vital Signs Vital signs: Vital Signs Temp 99.7 F H 10/04/20 14:56 Pulse 98 10/04/20 14:56 Resp 16 10/04/20 14:56 BP 145/96 10/04/20 14:56 Pulse Ox Intake & Output 10/03/20 10/04/20 10/04/20 18:59 06:59 18:59 Weight 104.326 kg
== END | disposition home or self-care (01) ==
LOC: BARWHC3 14:16
PROVIDERS: ATTEND Surgery Plastic and Reconstructive Surgery
DX: E66.01 Morbid (severe) obesity due to excess calories (principal); Z68.36 Body mass index [BMI] 36.0-36.9, adult
CPT/HCPCS: 99211

== ENCOUNTER → 2020-11-22 | Outpatient (CLI) | payer BC ==
[2020-11-22 16:11] VITALS: BP 144/93; PULSE 86; RESP 18; TEMP 98.4; BMI 35.6
--- NOTE | 2020-11-22 16:25 | P.BASOAP ---
Subjective Progress Note Date: 11/22/20 Consent for gastric bypass with sleeve option reviewed. Psych medications adjustment described. Objective - Vital Signs Vital signs: Vital Signs Temp 98.4 F 11/22/20 16:06 Pulse 86 11/22/20 16:06 Resp 18 11/22/20 16:06 BP 144/93 11/22/20 16:06 Pulse Ox Intake & Output 11/21/20 11/22/20 11/22/20 18:59 06:59 18:59 Weight 102.512 kg Assessment/Plan Plan: Date: 11/22/20 Initial Weight: 101.179 kg Initial BMI: 35.2 Current Weight: 102.512 kg Current BMI: 35.6 Type of Surgery: Total Volume in Band: Previous Volume: Volume Removed: Volume Added: Band Size:
== END | disposition home or self-care (01) ==
LOC: BARWHC3 15:19
PROVIDERS: ATTEND Surgery Plastic and Reconstructive Surgery
DX: E66.01 Morbid (severe) obesity due to excess calories (principal); Z68.35 Body mass index [BMI] 35.0-35.9, adult
CPT/HCPCS: 99211

== ENCOUNTER → 2020-11-22 | Outpatient (CLI) | payer BC ==
[2020-11-22 17:02] LABS: Basophils % (A) 0 %; Eosinophils # (A) 0.2 k/uL (0-0.7); Eosinophils % (A) 2 %; HCT 46.9 % (34.0-46.0); HGB 15.5 gm/dL (11.4-16.0); Lymphocytes # (A) 2.7 k/uL (1.0-4.8); Lymphocytes % (A) 25 %; MCH 31.2 pg (25.0-35.0); MCV 94.4 fL (80.0-100.0); Mean Platelet Volume 6.9; Monocytes # (A) 0.7 k/uL (0-1.0); Monocytes % (A) 7 %; Neutrophils % (A) 64 %; Platelet Count 274 k/uL (150-450); RBC 4.97 m/uL (3.80-5.40); RDW 13.9 % (11.5-15.5); WBC 10.8 k/uL (3.8-10.6)
[2020-11-22 17:11] LABS: ALT 40 U/L (4-34); AST 50 U/L (14-36); African American GFR (CKD) >90 (>60 ml/min/1.73 sqM); Albumin 4.3 g/dL (3.5-5.0); Alkaline Phosphatase 66 U/L (38-126); Anion Gap 12 mmol/L; Blood Urea Nitrogen 25 mg/dL (7-17); Calcium 9.8 mg/dL (8.4-10.2); Carbon Dioxide 23 mmol/L (22-30); Chloride 101 mmol/L (98-107); Glucose 91 mg/dL (74-99); Non-African American GFR(CKD) >90 (>60 ml/min/1.73 sqM); Potassium 4.3 mmol/L (3.5-5.1); Sodium 136 mmol/L (137-145); Total Bilirubin 0.4 mg/dL (0.2-1.3); Total Protein 7.2 g/dL (6.3-8.2)
== END | disposition home or self-care (01) ==
LOC: LABPAT 16:30
PROVIDERS: ATTEND Surgery Plastic and Reconstructive Surgery
DX: Z01.812 Encounter for preprocedural laboratory examination (principal)
CPT/HCPCS: 80053; 85025

== ENCOUNTER 2020-12-04 09:01 | Inpatient (IN) | payer BC ==
--- NOTE | 2020-12-04 08:56 | P.GSHP ---
History of Present Illness H&P Date: 12/04/20 CHIEF COMPLAINT: Morbid obesity HISTORY OF PRESENT ILLNESS: Georgia Hairston is a 40-year-old female who has morbid obesity. She has developed osteoarthritis including lower back, sciatica, osteoarthritis of the knee and ankle and left leg. She has sleep apnea. She has hyperlipidemia. She is looking into the gastric bypass. At height of 5 feet 6.75 inches, her ideal body weight is 154 pounds. Her highest weight was 230 pounds, BMI 36.4. She comes in 227 pounds from 223 pounds, 2 months ago. She has gained 4 pounds in 2 months. Her body mass index is 35.8. She is 73 pounds overweight. PAST MEDICAL HISTORY: 1. Morbid obesity due to excess calories 2. Body mass index of 36.4, initial 3. Sleep apnea 4. Hyperlipidemia 5. Osteoarthritis lower back 6. Sciatica 7. Osteoarthritis ankle, left 8. Osteoarthritis knee, left 9. Depressive disorder 10. Hypertensive heart disease 11. Anxiety disorder PAST SURGICAL HISTORY: 1. Cholecystectomy HOME MEDICATIONS: Home Medications Medication Instructions Recorded Confirmed Atorvastatin [Lipitor] 5 mg PO DAILY 05/17/20 05/17/20 Cholecalciferol [Vitamin D3 (25 50 mcg PO DAILY 05/17/20 05/17/20 Mcg = 1000 Iu)] Clindamycin Phos/Benzoyl Perox 1 applic TOPICAL BID PRN 05/17/20 05/17/20 [Benzaclin Gel] Cyanocobalamin (Vitamin B-12) 1,000 mcg PO DAILY 05/17/20 05/17/20 [Vitamin B-12] Desvenlafaxine [Desvenlafaxine ER] 100 mg PO DAILY 05/17/20 05/17/20 Melatonin 10 mg PO DAILY 05/17/20 05/17/20 Multivitamin [Multivitamins Adult 1 each PO DAILY 05/17/20 05/17/20 Gummies] Prazosin [Minipress] 2 mg PO DAILY 05/17/20 05/17/20 Spironolactone [Aldactone] 75 mg PO DAILY 05/17/20 05/17/20 Tretinoin [Tretinoin 0.05%] 1 applic TOPICAL DAILY PRN 05/17/20 05/17/20 buPROPion HCL [Wellbutrin XL] 300 mg PO DAILY 05/17/20 05/17/20 hydrOXYzine HCL 50 mg PO DAILY 05/17/20 05/17/20 metroNIDAZOLE 0.75% CREAM 1 applic TOPICAL BID 05/17/20 05/17/20 [Metrocream] ALLERGIES: Allergies Allergy/AdvReac Type Severity Reaction Status Date / Time Penicillins Allergy Unknown Verified 05/17/20 15:02 sulfamethoxazole Allergy Unknown Verified 05/17/20 15:02 [From Bactrim] trimethoprim [From Bactrim] Allergy Unknown Verified 05/17/20 15:02 SOCIAL HISTORY: No past tobacco use. FAMILY HISTORY: No family history of ulcerative colitis disease or Crohn's disease. Family history of morbid obesity. No lupus in the family. No reports of stomach or esophageal cancer. Her aunt had deep venous thromboses. Her father, uncle, and aunt have troubles their with weight including obesity. REVIEW OF ORGAN SYSTEMS: CONSTITUTIONAL: At height of 5 feet 6.75 inches, her ideal body weight is 154 pounds. Her highest weight was 230 pounds, BMI 36.4. She comes in 223 pounds. Her body mass index is 35.2. She is 69 pounds overweight. HEENT: Denies any active troubles with vision or hearing. No troubles with swallowing. ENDOCRINE: Denies diabetes. No hypothyroidism. CARDIOVASCULAR: Denies reports of palpitations or heart attacks or chest pain. Has hypertensive heart disease. Has hyperlipidemia RESPIRATORY: Has daytime somnolence. Has asthma. Has sleep apnea GASTROINTESTINAL: Denies any bright red blood per rectum. Past colonoscopies. Has gastroesophageal reflux disease. GENITOURINARY: Denies bladder urgency. No recent blood in urine MUSCULOSKELETAL: Has lower back pain and joint pain. She reports osteoarthritis including lower back pain, sciatica, osteoarthritis of the knee and ankle and left leg. NEURO: No headaches. No seizure disorders. PSYCH: Has depression disorder. No suicidal ideation. Has anxiety disorder. RHEUMATOLOGIC: No lupus. No rheumatoid arthritis. HEMATOLOGIC: Denies any abnormal bleeding or bruising. No past history of DVTs. SKIN: No rash. No skin cancer. PHYSICAL EXAM: VITAL SIGNS: Height 5 foot 6.75 inches, weight 226 pounds. BMI 35.8 GENERAL: Well-developed in no acute distress. HEENT: No scleral icterus. Extraocular movements grossly intact. Hears conversational speech. No nasal drainage. NECK: Supple without lymphadenopathy. CHEST: Nonlabored respirations with equal bilateral excursions. CARDIOVASCULAR: Tachycardic ABDOMEN: Obese, soft, nontender, nondistended. MUSCULOSKELETAL: No clubbing, cyanosis. NEURO: No focal or lateralizing signs. Cranial nerves 2 through 12 grossly within normal limits. PSYCH: Appropriate affect. Alert and oriented to person, place and time. SKIN: Good skin turgor. Well perfused. ASSESSMENT: 1. Morbid obesity due to excess calories 2. Body mass index of 36.4 initial to 35.8 3. Excessive daytime sleepiness 4. Hyperlipidemia 5. Osteoarthritis lower back 6. Sciatica 7. Osteoarthritis ankle, left 8. Osteoarthritis knee, left 9. Depressive disorder 10. Hypertensive heart disease 11. Anxiety disorder 12. Family history morbid obesity 13. Family history of DVT 14. Abnormal EKG 15. Zinc deficiency 16. Hypertriglyceridemia 17. Chronic gastritis. PLAN: 1. Bariatric options between a sleeve, band and a Guillaume-en-Y gastric bypass were reviewed in detail. The patient elected for a gastric bypass. Robotic assisted approach described. 2. The [place] [facility] Data was also reviewed with benefits and risks as described. 3. An 8 page second-generation bariatric consent form was reviewed in detail including potential of bleeding, infection, leaks, adequate weight loss, nutritional deficiencies which the patient demonstrated understanding of the risks. 4. A 2 week high-protein low caloric 800 kcal diet described to address hepatomegaly. 5. Preoperative labs including complete metabolic panel and CBC with type and screen recommended. 6. DVT prophylaxis per [place] [facility]. 7. Antibiotic prophylaxis. 8. Inpatient hospitalization anticipated for more than 2 nights. 9. All questions and concerns were addressed with the patient. 10. Overall, patient has expressed understanding of bariatric care including postoperative diet and commitment of lifestyle. Patient should benefit from surgical intervention for correction of her morbid obesity. Past Medical History Past Medical History: Hyperlipidemia, Hypertension History of Any Multi-Drug Resistant Organisms: None Reported Past Surgical History: Cholecystectomy Past Anesthesia/Blood Transfusion Reactions: No Reported Reaction Past Psychological History: Anxiety, Depression Smoking Status: Never smoker Past Alcohol Use History: Rare Past Drug Use History: None Reported - Past Family History Mother Family Medical History: No Reported History Medications and Allergies Home Medications Medication Instructions Recorded Confirmed Type Atorvastatin [Lipitor] 5 mg PO HS 05/17/20 11/30/20 History Clindamycin Phos/Benzoyl Perox 1 applic TOPICAL BID PRN 05/17/20 11/30/20 History [Benzaclin Gel] Desvenlafaxine [Desvenlafaxine ER] 100 mg PO HS 05/17/20 11/30/20 History Prazosin [Minipress] 2 mg PO HS 05/17/20 11/30/20 History Spironolactone [Aldactone] 75 mg PO HS 05/17/20 11/30/20 History Tretinoin [Tretinoin 0.05%] 1 applic TOPICAL DAILY PRN 05/17/20 11/30/20 History buPROPion HCL [Wellbutrin XL] 300 mg PO QAM 05/17/20 11/30/20 History hydrOXYzine HCL 25 mg PO HS 05/17/20 11/30/20 History metroNIDAZOLE 0.75% CREAM 1 applic TOPICAL BID PRN 05/17/20 11/30/20 History [Metrocream] Cryselle-28 1 tablet PO HS 06/28/20 11/30/20 History Allergies Allergy/AdvReac Type Severity Reaction Status Date / Time Penicillins Allergy Rash/Hives Verified 11/30/20 13:44 sulfamethoxazole Allergy Rash/Hives Verified 11/30/20 13:44 [From Bactrim] trimethoprim [From Bactrim] Allergy Rash/Hives Verified 11/30/20 13:44
[~2020-12-04 09:01] MED LIST changes: +ACETAMINOPHEN TAB 500 MG TAB PO PRN; +CHLORHEXIDINE GLUCONATE 15 ML CUP MUCOUS MEM PRN; +DEXAMETHASONE SOD PHOSPHATE 4 MG/ML 1 ML VIAL IV ONE; +ENOXAPARIN 40 MG/0.4 ML SYRINGE SQ PRN; +GABAPENTIN 300 MG CAP PO PRN; +HYDROmorphone 0.5 MG/0.5 ML SYRINGE IVP PRN; -LACTATED RINGERS 1,000 ML IV SCH; +LIDOCAINE 1% (10MG/ML) FOR IV START INTRADERMA PRN; +MIDAZOLAM 2 MG/2 ML VIAL IV PRN; +ONDANSETRON 4 MG/2 ML VIAL IVP ONE; +PANTOPRAZOLE 40 MG/10 ML VIAL IVP PRN; +SCOPOLAMINE 1.5MG/72HR PATCH TRANSDERM PRN
[2020-12-04] MEDS: LACTATED RINGERS 1,000 ML IV SCH (09:15)
--- NOTE | 2020-12-04 10:32 | P.HPADDEND ---
H&P Addendum H&P Addendum Date: 12/04/20 Benefits and risk of robotic gastric bypass were described. Features of adhesions including small bowel adhesions may prohibit proceeding with gastric bypass. Options include lysis of adhesions with deferring gastric bypass or continuing to sleeve gastrectomy were reviewed. Patient opted for sleeve ga strectomy if gastric bypass was unobtainable. All questions were answered and discussed with the patient's and patient herself.
[2020-12-04] MEDS ORDERED: NEOSTIGMINE 1 MG/ML 10 ML VIAL ONE (10:47)
[2020-12-04] MEDS ORDERED: ROCURONIUM 10 MG/ML (5 ML VIAL) IV ONE (10:47)
[2020-12-04] MEDS ORDERED: PROPOFOL 10 MG/ML 20 ML VIAL IV ONE (10:47)
[2020-12-04] MEDS ORDERED: HYDROmorphone (PF) 1 MG/ML ONE (10:47)
[2020-12-04] MEDS ORDERED: fentaNYL (PF) 50 MCG/ML 2 ML AMP ONE (10:47)
[2020-12-04] MEDS ORDERED: ePHEDrine SULFATE/0.9% NACL/PF 50 MG/5 ML SYRINGE IV ONE (10:47)
[2020-12-04] MEDS ORDERED: LIDOCAINE 1% INJ 10MG/ML (20 ML MDV) ONE (10:47)
[2020-12-04] MEDS ORDERED: MIDAZOLAM 2 MG/2 ML VIAL ONE (10:47)
[2020-12-04] MEDS ORDERED: SUCCINYLCHOLINE CHLORIDE 100 MG/5 ML SYR IV ONE (10:47)
[2020-12-04] MEDS ORDERED: GLYCOPYRROLATE 0.2 MG/ML 2 ML VIAL ONE (10:47)
[2020-12-04] MEDS ORDERED: LIDOCAINE 1%-EPI 1:100,000 20 ML VIAL SQ ONE (11:47)
[2020-12-04] MEDS ORDERED: LACTATED RINGERS 1,000 ML IV ONE (12:56)
--- NOTE | 2020-12-04 14:21 | P.OP ---
Date of Procedure: 12/04/20 Description of Procedure: SURGEON: LOPEZ FISHER MD PREOPERATIVE DIAGNOSES: 1. Morbid obesity due to excess calories 2. Body mass index POSTOPERATIVE DIAGNOSES: 1. Morbid obesity due to excess calories 2. Body mass index OPERATION: 1. Robotic assisted da Samson Xi laparoscopic Grayson-en-Y gastric bypass, 125 cm antecolic antegastric Grayson limb, with 25 mm EEA. 2. Intraoperative esophagogastrojejunoscopy. ANESTHESIA: GETA and local ESTIMATED BLOOD LOSS: 10 mL SPECIMENS REMOVED: None. COMPLICATIONS: NONE. Operative Findings: 1. Biliopancreatic limb 60 cm 2. Bypass performed using 125 cm grayson limb to avoid increased tension at 150 cm. 3. Leak test negative with gastrojejunal anastomosis patent and hemostatic. 4. Reinforcement sutures were placed along the gastrojejunal anastomosis at all 4 quadrants 5. No fatty liver disease 6. No hiatus hernia identified INDICATIONS: Georgia Hairston is a 40-year-old female who has morbid obesity. She has developed osteoarthritis including lower back, sciatica, osteoarthritis of the knee and ankle and left leg. She has sleep apnea. She has hyperlipidemia. She is looking into the gastric bypass. At height of 5 feet 6.75 inches, her ideal body weight is 154 pounds. Her highest weight was 230 pounds, BMI 36.4. A second-generation bariatric consent form was described in detail including the possibility of protein malnutrition, leaks, gastrojejunal stricture, venous thrombosis, need for further surgery for which she demonstrated understanding. Benefits and risks of the procedure were described at length. Informed consent was obtained. DESCRIPTION: The patient was brought into the operating room theater. She was placed supine. She had received Lovenox subcutaneously for DVT prophylaxis. Additionally she Peridex oral solution as an oral decontaminant was placed per anesthesia. After general induction, the abdomen was prepped and draped in standard sterile fashion. Ioban draping was placed along the abdomen. Rosas catheter was placed. A robotic da Samson Xi system was prepped and primed. Incisions were proposed at 15 cm from the xiphoid. Proposed port sites were marked with indelible marker along the anterior axillary line bilaterally, mid clavicular line bilaterally with each port marked 10 cm from each other. The robotic stapler port was marked for the right midclavicular line including along the left midclavicular line. A 5 mm 0 degrees laparoscopic trocar entry was performed along the left upper quadrant. The abdomen was insufflated to 15 mmHg pressure, which she tolerated well. Diagnostic laparoscopy demonstrated no injury to bowel, viscera, or mesentery. The liver edge was sharp sharp consistent with her 2-week protein diet. An 8 mm camera port was placed left lateral to the umbilicus at the epigastrium, 15 cm distal to the xiphoid. Next, 12-mm robot stapler port was placed along the right mid abdomen. An 12 mm port was exchanged along the left upper quadrant. An 8 mm port was placed on the left lateral abdominal wall under direct visualization Please note that the ports were placed 18 to 20 cm away from the target anatomy of the stomach. Care was taken to check that each robotic arm was safely away from collision with the bed or the patient. At the epigastrium, a medium sized Toño liver retractor was placed under direct visualization with the Iron Fnps placed under the right shoulder of the patient. The patient was repositioned in reverse Trendelenburg position at 21-degrees after lowering the bed. The robot was docked over the patient. Using grasper for arm 3, a grasper for arm 1, including vessel sealer for arm 4, the robotic system was docked and primed as described. Instruments were interchanged by the psych assistant including endoscissors, the needle medical driver, and stapler. I had sat at the console. Next, the transverse mesocolon was reflected into the upper abdomen after dividing the mesentery and preparing for the jejunojejunostomy portion of the case. The ligament of Treitz was identified and measured 60 cm antegrade and marked using 3-0 Silk. The jejunum was divided at the 60 cm point using 60-mm blue loads above the suture measurement. The biliopancreatic limb was held in place. The Grayson limb was measured 125 cm in an antegrade fashion to avoid tension along the proposed gastrojejunal anastomosis. At 125 cm along the anti-mesenteric border of the Grayson limb, a jejunojejunostomy was proposed whereby enterotomies were created along the biliopancreatic limb including the Grayson limb using a Bovie cautery. A stay suture of 3-0 Slik was placed to align and create the anastomosis. The enterotomies along the anti- mesenteric borders were created followed by unidirectional fire from the patient's right side using 60 mm blue load Smart technology robotic stapler. The jejunojejunostomy was found to be hemostatic. The enterotomy was closed after horizontal mattress stitch of 3-0 silk used to elevate the enterotomy followed by closure with the robotic stapler blue load. The jejunal limb was temporarily tacked along the left upper quadrant. Attention was now brought to the creation of the gastrojejunostomy. Along the lesser curvature of the stomach, dissection was made along the retrogastric space to allow first firing of the robotic staple. Green and blue loads of 60 mm staplers were used to divide the stomach to create the gastric pouch. The patient was then prepared for placement of a Orvil. The patient was Mallampati 2. A 25-mm Orvil was selected for placement by the nurse switch inspector. The Orvil tubing was placed anterior to the staple line of the gastric pouch and brought out through the left inferior lateral port. I re-scrubbed into the case. The robotic arms were temporarily undocked. The Orvil was then carefully and successfully navigated with the help of the nurse switch inspector into the gastric pouch. The sutures were identified and divided. The tubing was from the 25 mm anvil. As the Orvil had been placed, the stapled jejunal limb was brought proximally into the upper abdomen. No torsion was found upon the Grayson limb. No tension was identified as the limb was brought along the upper abdomen. The stapled jejunal limb was opened using cautery. The 25-mm EEA stapler was brought through the left anterior lateral port site from the left side. The EEA stapler was brought through the open jejunal limb and its needle was deployed at the antimesenteric border where the anvil were mated for approximately 1 minute upon firing. The stapler was removed after irrigating the shaft of the instrument with warm normal saline. Donuts were found to be intact and on both sides. The [employer] Xi robot arms were then re-docked. I sat at the console. The open jejunal limb defect was closed using 60 mm blue loads after releasing any tension from the jejunal limb. Reinforcement sutures were placed along the gastrojejunal anastomosis and placed along the 12:00, 6:00, 9:00 and 3 o'clock position using 3-0 Vicryl. I then went to the head of the bed to perform the esophagogastrojejunoscopy and a leak test. An Olympus gastroscope was passed along the posterior oropharynx which was unremarkable for any injury to the vocal cords. The scope was passed down to the pouch, whereby no active bleeding was encountered. Visualization of the gastrojejunostomy anastomosis including the Grayson limb was encountered with endoscopic image obtained. The anastomosis was found to be patent. The gastrointestinal tract was desufflated. No evidence of intraoperative leak was encountered as the gastric pouch and anastomosis were submerged under normal saline solution. The robot was then undocked. I then went back to the bedside of the patient, whereby with coordinated effort of the psych assistant, irrigation was aspirated from the upper abdominal cavity. Tisseel was placed circumferentially over the anastomosis of the gastrojejunostomy. The fascial defect of the EEA stapler was closed using Raymond Jaffe and 0 Vicryl. All instruments and pneumoperitoneum were evacuated from the abdominal cavity. The port correlating with the EEA stapler device was cleansed with normal saline solution and hydrogen peroxide. The rest of incisions were reapproximated using 4-0 Monocryl in an interrupted subcuticular fashion. Local anesthetic was infiltrated along the skin for postop analgesia. Liquid glue was applied to the skin. OptiFoam dressing was placed along the EEA stapler site. At the end of the procedure, needle, sponge and instrument count had been verified correct by the surgical product sales consultant. The patient had tolerated the procedure well and was extubated and taken to the postanesthesia unit in stable condition. Intraoperative findings were described to the patient's family.
[2020-12-04] MEDS ORDERED: NALOXONE 0.4 MG/ML 1 ML VIAL IV PRN (14:23)
[2020-12-04] MEDS: ACETAMINOPHEN IV (For NPO) 1,000 MG in EMPTY BAG 1 BAG IVPB SCH ×2 (16:57→23:34)
[2020-12-04] MEDS: HYOSCYAMINE ORAL DROPS 1.875 MG/15 ML BOTTLE PO SCH ×2 (16:59→23:36)
[2020-12-04] MEDS: SIMETHICONE 40 MG/0.6 ML DROPS 2,000 MG/30 ML BOTTLE PO SCH ×2 (16:59→23:36)
[2020-12-04] MEDS: ALBUTEROL NEBULIZED 2.5 MG/3 ML INHALATION SCH ×2 (20:26→20:40)
[2020-12-04] MEDS: HYDROmorphone 1 MG/ML 1 ML SYRINGE IVP PRN (21:16)
[2020-12-04] MEDS ORDERED: DESVENLAFAXINE SUCCINATE 50 MG TAB.ER.24H PO SCH (22:15)
[2020-12-04] MEDS: 0.9% NACL WITH KCL 20 MEQ/L 1,000 ML IV SCH ×2 (22:43→22:56)
[2020-12-04] MEDS: SPIRONOLACTONE 25 MG TAB PO SCH (22:44)
[2020-12-04] MEDS: PRAZOSIN 1 MG CAP PO SCH (23:12)
[2020-12-04] MEDS: buPROPion XL 300 MG TAB.ER.24H PO SCH (23:33)
[2020-12-05] MEDS: HYDROmorphone 1 MG/ML 1 ML SYRINGE IVP PRN ×4 (03:27→21:10)
[2020-12-05] MEDS: 0.9% NACL WITH KCL 20 MEQ/L 1,000 ML IV SCH ×3 (06:35→13:50)
[2020-12-05] MEDS: ACETAMINOPHEN IV (For NPO) 1,000 MG in EMPTY BAG 1 BAG IVPB SCH ×3 (06:35→18:22)
[2020-12-05] MEDS: HYOSCYAMINE ORAL DROPS 1.875 MG/15 ML BOTTLE PO SCH ×3 (06:58→17:06)
[2020-12-05] MEDS: SIMETHICONE 40 MG/0.6 ML DROPS 2,000 MG/30 ML BOTTLE PO SCH ×3 (06:59→17:06)
[2020-12-05] MEDS: LACTATED RINGERS 1,000 ML IV SCH (07:00)
[2020-12-05] MEDS: ALBUTEROL NEBULIZED 2.5 MG/3 ML INHALATION SCH ×4 (08:23→20:00)
[2020-12-05] MEDS: PANTOPRAZOLE 40 MG/10 ML VIAL IV SCH (08:50)
[2020-12-05] MEDS: buPROPion XL 300 MG TAB.ER.24H PO SCH ×2 (08:50→08:55)
--- NOTE | 2020-12-05 08:51 | P.PN ---
Subjective Progress Note Date: 12/05/20 CHIEF COMPLAINT: Morbid obesity HISTORY OF PRESENT ILLNESS: Georgia Hairston is a 40-year-old female status post gastric bypass, 12/04/20. She is doing very well. No nausea or vomiting. Pain is controlled. She is tolerating liquids. REVIEW OF ORGAN SYSTEMS: No fevers or chills. No nausea or vomiting. PHYSICAL EXAM: VITAL SIGNS: Reviewed. GENERAL: Well-developed in no acute distress. HEENT: No scleral icterus. Extraocular movements grossly intact. Hears conversational speech. No nasal drainage. NECK: Supple without lymphadenopathy. CHEST: Nonlabored respirations with equal bilateral excursions. CARDIOVASCULAR: Regular rate and rhythm. ABDOMEN: Obese, soft, nontender, nondistended. MUSCULOSKELETAL: No clubbing, cyanosis. NEURO: No focal or lateralizing signs. Cranial nerves 2 through 12 grossly within normal limits. PSYCH: Appropriate affect. Alert and oriented to person, place and time. SKIN: Good skin turgor. Well perfused. ASSESSMENT: 1. Morbid obesity due to excess calories 2. Body mass index of 36.4 initial to 35.8 3. Excessive daytime sleepiness 4. Hyperlipidemia 5. Osteoarthritis lower back 6. Sciatica 7. Osteoarthritis ankle, left 8. Osteoarthritis knee, left 9. Depressive disorder 10. Hypertensive heart disease 11. Anxiety disorder 12. Family history morbid obesity 13. Family history of DVT 14. Abnormal EKG 15. Zinc deficiency 16. Hypertriglyceridemia 17. Chronic gastritis. PLAN: 1. Bariatric discharge instructions reviewed. 2. Medication reconciliation reviewed. 3. Discharge with follow-up in bariatric center in 3 to 5 days. Objective - Vital Signs Vital signs: Vital Signs Temp 99.1 F 12/05/20 08:00 Pulse 118 H 12/05/20 08:00 Resp 16 12/05/20 08:00 BP 140/97 12/05/20 08:00 Pulse Ox 95 12/05/20 08:00 Intake & Output 12/04/20 12/05/20 12/05/20 18:59 06:59 18:59 Intake Total 1750 Output Total 140 Balance 1610 Weight 98.6 kg Intake: IV 1750 Output: Urine 130 Estimated Blood Loss 10 Other: Voiding Method Toilet Toilet # Voids 1 3
[2020-12-05] MEDS: ENOXAPARIN 40 MG/0.4 ML SYRINGE SQ SCH (08:52)
[2020-12-05 10:30] LABS: African American GFR (CKD) 107.1 (60.0-200.0); Anion Gap 12.7 mmol/L (4.00-12.00); Blood Urea Nitrogen 10.4 mg/dL (9.0-27.0); Calcium 8.5 mg/dL (8.7-10.3); Carbon Dioxide 20.9 mmol/L (21.6-31.8); Non-African American GFR(CKD) 92.4 (60.0-200.0); Phosphorus 2.7 mg/dL (2.4-5.1); Potassium 3.9 mmol/L (3.5-5.5)
[2020-12-05 11:14] LABS: Basophils # (A) 0.01 X 10*3/uL (0.00-0.10); Basophils % (A) 0.1 %; Eosinophils # (A) 0.02 X 10*3/uL (0.04-0.35); Eosinophils % (A) 0.2 %; HCT 40.1 % (37.2-46.3); HGB 13.3 g/dL (12.0-15.0); Lymphocytes # (A) 1.68 X 10*3/uL (0.90-5.00); Lymphocytes % (A) 15.5 %; MCH 30.8 pg (27.0-32.0); MCHC 33.2 g/dL (32.0-37.0); MCV 92.8 fL (80.0-97.0); Mean Platelet Volume 10.1 fL (9.5-12.2); Monocytes # (A) 1.06 X 10*3/uL (0.20-1.00); Monocytes % (A) 9.8 %; Neutrophils # (A) 8.03 X 10*3/uL (1.80-7.70); Neutrophils % (A) 74.1 %; Platelet Count 231 X 10*3/uL (140-440); RBC 4.32 X 10*6/uL (4.10-5.20); RDW 14.6 % (11.5-14.5); WBC 10.83 X 10*3/uL (4.50-10.00)
[2020-12-05] MEDS ORDERED: FLUoxetine ORAL SOLN 20 MG/5 ML CUP PO STA (13:29)
[2020-12-05 13:41] VITALS: BMI 34.5
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
[2020-12-05] MEDS: PRAZOSIN 1 MG CAP PO SCH (21:10)
[2020-12-05] MEDS: SPIRONOLACTONE 25 MG TAB PO SCH (21:10)
[2020-12-06] MEDS: ACETAMINOPHEN IV (For NPO) 1,000 MG in EMPTY BAG 1 BAG IVPB SCH ×3 (00:06→11:33)
[2020-12-06] MEDS: HYOSCYAMINE ORAL DROPS 1.875 MG/15 ML BOTTLE PO SCH ×3 (00:07→11:36)
[2020-12-06] MEDS: SIMETHICONE 40 MG/0.6 ML DROPS 2,000 MG/30 ML BOTTLE PO SCH ×3 (00:07→11:36)
[2020-12-06] MEDS: 0.9% NACL WITH KCL 20 MEQ/L 1,000 ML IV SCH ×2 (00:08→10:42)
[2020-12-06] MEDS: LACTATED RINGERS 1,000 ML IV SCH (07:14)
[2020-12-06] MEDS: PANTOPRAZOLE 40 MG/10 ML VIAL IV SCH (07:55)
[2020-12-06] MEDS: ENOXAPARIN 40 MG/0.4 ML SYRINGE SQ SCH (07:55)
[2020-12-06] MEDS: ALBUTEROL NEBULIZED 2.5 MG/3 ML INHALATION SCH ×2 (08:55→11:20)
[2020-12-06 11:57] LABS: African American GFR (CKD) >90 (>60 ml/min/1.73 sqM); Anion Gap 10 mmol/L; Blood Urea Nitrogen 8 mg/dL (7-17); Calcium 9.4 mg/dL (8.4-10.2); Carbon Dioxide 24 mmol/L (22-30); Chloride 104 mmol/L (98-107); Glucose 88 mg/dL (74-99); Non-African American GFR(CKD) >90 (>60 ml/min/1.73 sqM); Potassium 3.9 mmol/L (3.5-5.1); Sodium 138 mmol/L (137-145)
[2020-12-06] MEDS ORDERED: bisacodyL 10 MG SUPP RECTAL STA (12:52)
[2020-12-06 13:21] LABS: Basophils % (A) 0 %; Eosinophils # (A) 0.1 k/uL (0-0.7); Eosinophils % (A) 1 %; HCT 45.1 % (34.0-46.0); HGB 14.2 gm/dL (11.4-16.0); Lymphocytes # (A) 1.9 k/uL (1.0-4.8); Lymphocytes % (A) 19 %; MCH 30.8 pg (25.0-35.0); MCHC 31.5 g/dL (31.0-37.0); MCV 97.8 fL (80.0-100.0); Mean Platelet Volume 7.4; Monocytes # (A) 0.6 k/uL (0-1.0); Monocytes % (A) 6 %; Neutrophils # (A) 6.9 k/uL (1.3-7.7); Neutrophils % (A) 72 %; Platelet Count 245 k/uL (150-450); RBC 4.62 m/uL (3.80-5.40); RDW 13.8 % (11.5-15.5); WBC 9.5 k/uL (3.8-10.6)
[2020-12-06 15:03] VITALS: BP 141/94; PULSE 103; RESP 17; TEMP 98.2
[2020-12-06] MEDS ORDERED: SIMETHICONE 40 MG/0.6 ML DROPS 2,000 MG/30 ML BOTTLE PO SCH (18:00)
--- NOTE | 2020-12-07 08:40 | P.DS ---
Providers Date of admission: 12/04/20 09:01 Expected date of discharge: 12/06/20 Attending physician: Evi Chowdary Consults: 12/05/20 11:25 Consult Physician Routine Consulting Provider: Germain Perez Consult Reason/Comments: Depressive medications management Do you want consulting provider notified?: Yes Primary care physician: Lety Emery - Discharge Diagnosis(es) (1) Morbid obesity due to excess calories Status: Acute (2) Adult BMI 36.0-36.9 kg/sq m Status: Acute (3) Hypertriglyceridemia Status: Acute (4) Osteoarthritis of back Status: Acute (5) Osteoarthritis of left knee Status: Acute (6) Osteoarthritis of left ankle Status: Acute (7) Depressive disorder Status: Acute Hospital Course: CHIEF COMPLAINT: Morbid obesity HISTORY OF PRESENT ILLNESS: Georgia Hairston is a 40-year-old female status post gastric bypass, 12/04/20. History, discharge was held due to gas pains. Patient reports concern over her psychiatric medications. Psychiatry assessment obtained for management of her psychiatric medications following gastric bypass. She is tolerating liquids. She reports small bowel movement today. REVIEW OF ORGAN SYSTEMS: No fevers or chills. No nausea or vomiting. no chest pain. PHYSICAL EXAM: VITAL SIGNS: Reviewed. GENERAL: Well-developed in no acute distress. HEENT: No scleral icterus. Extraocular movements grossly intact. Hears conversational speech. No nasal drainage. NECK: Supple without lymphadenopathy. CHEST: Nonlabored respirations with equal bilateral excursions. CARDIOVASCULAR: Regular rate and rhythm. ABDOMEN: Incisions intact. Mild distention. No peritonitis. MUSCULOSKELETAL: No clubbing, cyanosis. NEURO: No focal or lateralizing signs. Cranial nerves 2 through 12 grossly within normal limits. PSYCH: Appropriate affect. Alert and oriented to person, place and time. SKIN: Good skin turgor. Well perfused. LABS: Reviewed. White blood cell count normal. Hemoglobin normal. ASSESSMENT: 1. Morbid obesity due to excess calories 2. Body mass index of 36.4 initial to 35.8 3. Excessive daytime sleepiness 4. Hyperlipidemia 5. Osteoarthritis lower back 6. Sciatica 7. Osteoarthritis ankle, left 8. Osteoarthritis knee, left 9. Depressive disorder 10. Hypertensive heart disease 11. Anxiety disorder 12. Family history morbid obesity 13. Family history of DVT 14. Abnormal EKG 15. Zinc deficiency 16. Hypertriglyceridemia 17. Chronic gastritis. PLAN: 1. Reinforcement of adjustment of her psychiatric meds were reviewed including have been done prior to her surgery. 2. Patient encouraged for follow-up in 3-5 days at the bariatric center 3. Discharge medications reviewed including follow up with her psychiatrist for some of her medications. Patient Condition at Discharge: Good Plan - Discharge Summary Discharge Rx Participant: Yes New Discharge Prescriptions: New Omeprazole [PriLOSEC] 40 mg PO DAILY #30 cap Ondansetron Odt [Zofran Odt] 4 mg PO Q8HR PRN #9 tab PRN Reason: Nausea bisacodyL [Dulcolax] 5 mg PO DAILY PRN #10 tab PRN Reason: Constipation Simethicone 40 mg/0.6 ml Drops [Mylicon Drops] 40 mg PO PCHS PRN #30 ml PRN Reason: Gas Acetaminophen Oral Susp [Tylenol Oral Susp] 650 mg PO Q4-6H PRN #400 ml PRN Reason: Pain Continue metroNIDAZOLE 0.75% CREAM [Metrocream] 1 applic TOPICAL BID PRN PRN Reason: Acne Tretinoin [Tretinoin 0.05%] 1 applic TOPICAL DAILY PRN PRN Reason: Acne Prazosin [Minipress] 2 mg PO HS Spironolactone [Aldactone] 75 mg PO HS Clindamycin Phos/Benzoyl Perox [Benzaclin Gel] 1 applic TOPICAL BID PRN PRN Reason: Acne Discontinued buPROPion HCL [Wellbutrin XL] 300 mg PO QAM Desvenlafaxine [Desvenlafaxine ER] 100 mg PO HS hydrOXYzine HCL 25 mg PO HS Atorvastatin [Lipitor] 5 mg PO HS Cryselle-28 1 tablet PO HS Discharge Medication List Clindamycin Phos/Benzoyl Perox [Benzaclin Gel] 1 applic TOPICAL BID PRN 05/17/20 [History] Prazosin [Minipress] 2 mg PO HS 05/17/20 [History] Spironolactone [Aldactone] 75 mg PO HS 05/17/20 [History] Tretinoin [Tretinoin 0.05%] 1 applic TOPICAL DAILY PRN 05/17/20 [History] metroNIDAZOLE 0.75% CREAM [Metrocream] 1 applic TOPICAL BID PRN 05/17/20 [History] Acetaminophen Oral Susp [Tylenol Oral Susp] 650 mg PO Q4-6H PRN #400 ml 12/06/20 [Rx] Omeprazole [PriLOSEC] 40 mg PO DAILY #30 cap 12/06/20 [Rx] Ondansetron Odt [Zofran Odt] 4 mg PO Q8HR PRN #9 tab 12/06/20 [Rx] Simethicone 40 mg/0.6 ml Drops [Mylicon Drops] 40 mg PO PCHS PRN #30 ml 12/06/20 [Rx] bisacodyL [Dulcolax] 5 mg PO DAILY PRN #10 tab 12/06/20 [Rx] Follow up Appointment(s)/Referral(s): [place], [place] [NON-STAFF] - 12/08/20 9:00 am Patient Instructions/Handouts: Nutrition after Bariatric Surgery (DC), Guillaume-en-Y Gastric Bypass (GEN) Activity/Diet/Wound Care/Special Instructions: PLEASE CONTACT YOUR THERAPIST FOR IMMEDIATE ADJUSTMENT OF YOUR MENTAL HEALTH MEDICATION EXTENDED LENGTH MEDICATIONS ARE NOT PROPERLY ABSORBED WITH YOUR GASTRIC BYPASS. Continue to use incentive spirometry to prevent pneumonias. Please continue to ambulate at home to prevent blood clots in legs. Please notify your surgeon if you develop nausea and vomiting including new onset of abdominal pain. No lifting over 4 pounds in 4 weeks, January 04. Follow-up at the bariatric center. May shower. No soaking in bath tubs, until December 20. Drink 64 oz of fluid daily. Start protein shakes on Friday. Notify bariatric center for temp over 101.0, increased pain, drainage from incisions. No straws or carbonated beverages. Liquid diet only. Sugar content should be less than 6 g to avoid dumping syndrome. Take MOM for constipation. CRUSH, OPEN, OR CUT TABLETS LARGER THAN A SIZE OF A TIC TAC Discharge Disposition: HOME SELF-CARE
== END 2020-12-06 16:10 | disposition home or self-care (01) | DRG 621 ==
LOC: 2ORMAIN 09:01 → 4SSUR 15:10
PROVIDERS: ADMIT Surgery Plastic and Reconstructive Surgery; ATTEND Surgery Plastic and Reconstructive Surgery
PROC: 0DNW4ZZ Release Peritoneum, Percutaneous Endoscopic Approach (ICD-10-PCS; 2020-12-04)
PROC: 8E0W4CZ Robotic Assisted Procedure of Trunk Region, Percutaneous Endoscopic Approach (ICD-10-PCS; 2020-12-04)
PROC: 0DJ08ZZ Inspection of Upper Intestinal Tract, Via Natural or Artificial Opening Endoscopic (ICD-10-PCS; 2020-12-04)
PROC: 0D164ZA Bypass Stomach to Jejunum, Percutaneous Endoscopic Approach (ICD-10-PCS; principal; 2020-12-04 10:30)
DX: E66.01 Morbid (severe) obesity due to excess calories (principal); Z68.36 Body mass index [BMI] 36.0-36.9, adult; G47.30 Sleep apnea, unspecified; E78.5 Hyperlipidemia, unspecified; K66.0 Peritoneal adhesions (postprocedural) (postinfection); F41.9 Anxiety disorder, unspecified; M17.12 Unilateral primary osteoarthritis, left knee; M19.09 Primary osteoarthritis, other specified site; M19.072 Primary osteoarthritis, left ankle and foot; K29.50 Unspecified chronic gastritis without bleeding; E60 Dietary zinc deficiency; F32.9 Major depressive disorder, single episode, unspecified; G47.09 Other insomnia; E78.1 Pure hyperglyceridemia; Z20.822 Contact with and (suspected) exposure to COVID-19; I11.9 Hypertensive heart disease without heart failure; M54.30 Sciatica, unspecified side; Z79.899 Other long term (current) drug therapy; Z88.0 Allergy status to penicillin; Z88.8 Allergy status to other drugs, medicaments and biological substances; Z90.49 Acquired absence of other specified parts of digestive tract
CPT/HCPCS: 80048; 80051; 81025; 82310; 82565; 83735; 84100; 84520; 85025; 86850; 86900; 86901; 87635; 94640; 94760; 94762

== ENCOUNTER → 2020-12-13 | Outpatient (CLI) | payer BC ==
--- NOTE | 2020-12-13 14:18 | P.BASOAP ---
Subjective Progress Note Date: 12/13/20 She developed allergy to adhesive. She has tried claritin and alicia for allergy. Psych medications were adjusted. No dysphagia. No further pain medications. Objective - Vital Signs Vital signs: Vital Signs Temp 99.2 F 12/13/20 13:20 Pulse 83 12/13/20 13:20 Resp 18 12/13/20 13:20 BP 147/87 12/13/20 13:20 Pulse Ox Intake & Output 12/12/20 12/13/20 12/13/20 18:59 06:59 18:59 Weight 96.162 kg Assessment/Plan Plan: Date: 12/13/20 Initial Weight: 101.179 kg Initial BMI: 35.2 Current Weight: 96.162 kg Current BMI: 33.4 Type of Surgery: Total Volume in Band: Previous Volume: Volume Removed: Volume Added: Band Size:
[2020-12-13 16:46] VITALS: BP 147/87; PULSE 83; RESP 18; TEMP 99.2; BMI 33.4
== END | disposition home or self-care (01) ==
LOC: BARWHC3 12:49
PROVIDERS: ATTEND Surgery Plastic and Reconstructive Surgery
DX: E66.01 Morbid (severe) obesity due to excess calories (principal); Z71.3 Dietary counseling and surveillance; Z68.33 Body mass index [BMI] 33.0-33.9, adult
CPT/HCPCS: 97803; 99211

== ENCOUNTER → 2021-01-03 | Outpatient (CLI) | payer BC ==
[2021-01-03 16:43] VITALS: BP 126/84; PULSE 97; RESP 18; TEMP 98.1; BMI 31.5
--- NOTE | 2021-01-03 16:59 | P.BASOAP ---
Subjective Progress Note Date: 01/03/21 Her psych meds are attached. She has lost 20+ pounds. Labs needed. No heartburn. No new belly pain. Her food is getting stuck. Recommend EGD with dilation. Dysphagia is over 1 week ago with tuna fish and liquids. Objective - Vital Signs Vital signs: Vital Signs Temp 98.1 F 01/03/21 16:36 Pulse 97 01/03/21 16:36 Resp 18 01/03/21 16:36 BP 126/84 01/03/21 16:36 Pulse Ox Intake & Output 01/02/21 01/03/21 01/03/21 18:59 06:59 18:59 Weight 90.718 kg Assessment/Plan Plan: Date: 01/03/21 Initial Weight: 101.179 kg Initial BMI: 35.2 Current Weight: 90.718 kg Current BMI: 31.5 Type of Surgery: Total Volume in Band: Previous Volume: Volume Removed: Volume Added: Band Size:
== END | disposition home or self-care (01) ==
LOC: BARWHC3 16:13
PROVIDERS: ATTEND Surgery Plastic and Reconstructive Surgery
DX: E66.01 Morbid (severe) obesity due to excess calories (principal); Z68.31 Body mass index [BMI] 31.0-31.9, adult
CPT/HCPCS: 99211

== ENCOUNTER 2021-01-08 09:39 | Day surgery (SDC) | payer BC ==
[2021-01-04 12:40] VITALS: BMI 32.3
--- NOTE | 2021-01-08 07:00 | P.GSHP ---
History of Present Illness H&P Date: 01/08/21 CHIEF COMPLAINT: GERD HISTORY OF PRESENT ILLNESS: The patient is a 40-year-old female who presents reports gastroesophageal reflux disease. Upper endoscopy was offered for further evaluation and management. PAST MEDICAL HISTORY: Please see list. PAST SURGICAL HISTORY: Please see list. MEDICATIONS: Please see list. ALLERGIES: Please see list. SOCIAL HISTORY: No illicit drug use FAMILY HISTORY: No reports of Crohn disease or ulcerative colitis. REVIEW OF ORGAN SYSTEMS: CONSTITUTIONAL: No reports of fevers or chills. GI: Denies any blood in stools or constipation. PHYSICAL EXAM: VITAL SIGNS: Stable GENERAL: Well-developed and pleasant in no acute distress. HEENT: No scleral icterus. Extraocular movements grossly intact. Moist buccal mucosa. NECK: Supple without lymphadenopathy. CHEST: Unlabored respirations. Equal bilateral excursions. CARDIOVASCULAR: Regular rate and rhythm. Distal 2+ pulses. ABDOMEN: Soft, nondistended. MUSCULOSKELETAL: No clubbing, cyanosis, or edema. ASSESSMENT: 1. Gastroesophageal reflux disease PLAN: 1. Recommend proceeding with an upper endoscopy Past Medical History Past Medical History: Hyperlipidemia, Hypertension Additional Past Medical History / Comment(s): STATES SHE TAKES PRAZOSIN FOR ANXIETY, TAKES SPIRONOLACTONE FOR ACNE., CARLITOS-EN-Y GASTRIC BYPASS SURGERY 12/04/20-STATES INCISIONS HEALING., STATES TIGHTNESS-FOOD DOES NOT WANT TO GO DOWN. History of Any Multi-Drug Resistant Organisms: None Reported Past Surgical History: Bariatric Surgery, Cholecystectomy Additional Past Surgical History / Comment(s): ROBOTIC ASSISTED LAP CARLITOS-EN-Y GASTRIC BYPASS (12/04/20), EGD Past Anesthesia/Blood Transfusion Reactions: No Reported Reaction Past Psychological History: Anxiety, Depression Smoking Status: Never smoker Past Alcohol Use History: Rare Past Drug Use History: None Reported - Past Family History Mother Family Medical History: No Reported History Medications and Allergies Home Medications Medication Instructions Recorded Confirmed Type Prazosin [Minipress] 2 mg PO HS 05/17/20 01/04/21 History FLUoxetine HCL [PROzac] 20 mg PO DAILY 01/04/21 01/04/21 History Omeprazole [PriLOSEC] 40 mg PO HS 01/04/21 01/04/21 History Spironolactone 100 mg PO HS 01/04/21 01/04/21 History buPROPion HCL [Wellbutrin SR] 100 mg PO BID 01/04/21 01/04/21 History Allergies Allergy/AdvReac Type Severity Reaction Status Date / Time adhesive Allergy Rash/Hives Verified 01/04/21 12:15 Penicillins Allergy Rash/Hives Verified 01/04/21 12:15 sulfamethoxazole Allergy Rash/Hives Verified 01/04/21 12:15 [From Bactrim] trimethoprim [From Bactrim] Allergy Rash/Hives Verified 01/04/21 12:15 SURGICAL GLUE Allergy Unknown Rash/Hives Uncoded 01/04/21 12:28
[2021-01-08] MEDS ORDERED: LACTATED RINGERS 1,000 ML IV ONE (09:52)
[2021-01-08 09:55] VITALS: TEMP 96.1
[2021-01-08] MEDS ORDERED: PROPOFOL 10 MG/ML 20 ML VIAL IV ONE (10:44)
[2021-01-08] MEDS ORDERED: LIDOCAINE 1% INJ 10MG/ML (20 ML MDV) ONE (10:44)
--- NOTE | 2021-01-08 11:04 | P.PCN ---
Date of Procedure: 01/08/21 Description of Procedure: PREOPERATIVE DIAGNOSIS: Dysphagia. Nausea with vomiting. Morbid obesity. POSTOPERATIVE DIAGNOSIS: Dysphagia. Nausea with vomiting. Morbid obesity. Gastrojejunal stricture with chronic ulcer without perforation OPERATION: Esophagogastrojejunoscopy with balloon dilatation from 3 to 10 mm. SURGEON: Evi Chowdary MD ANESTHESIA: MAC. INDICATIONS: The patient is a 40-year-old female who presents with a history of dysphagia including new-onset nausea and vomiting. Benefits and risks of the procedure were described. Informed consent was obtained. DESCRIPTION: The patient was brought into the endoscopy suite and laid in the left lateral decubitus position. After a timeout was confirmed, the procedure was initiated. An Olympus gastroscope was passed along the posterior oropharynx down to the distal esophagus where the squamocolumnar junction was unremarkable. The gastric pouch was entered. A gastrojejunal stricture of 3 mm was found as the adult gastroscope was 9.5 mm in size. A CorNova balloon dilator was placed through the scope. Final insufflation up to 10 mm was performed with a total of 2 minutes. The scope was advanced up to 60 cm from the incisors into the Guillaume limb. The mucosa of the gastrojejunal anastomosis was intact. However chronic gastrojejunal marginal ulcer was encountered. No full-thickness injury was encountered. The GI tract was desufflated. The patient tolerated the procedure well. FINDINGS: Squamocolumnar junction unremarkable at 37 cm. Stricture of approximately 3 mm encountered. Chronic gastrojejunal ulceration encountered. Successful balloon dilatation to 10 mm. Gastric pouch 5 cm. RECOMMENDATIONS: 1. Start omeprazole of at least 4 weeks. 2. Repeat upper endoscopy 4 weeks Plan - Discharge Summary New Discharge Prescriptions: Continue RX: Prazosin [Minipress] 2 mg PO HS RX: FLUoxetine HCL [PROzac] 20 mg PO DAILY RX: Spironolactone 100 mg PO HS RX: Omeprazole [PriLOSEC] 40 mg PO HS RX: buPROPion HCL [Wellbutrin SR] 100 mg PO BID Discharge Medication List RX: Prazosin [Minipress] 2 mg PO HS 05/17/20 [History] RX: FLUoxetine HCL [PROzac] 20 mg PO DAILY 01/04/21 [History] RX: Omeprazole [PriLOSEC] 40 mg PO HS 01/04/21 [History] RX: Spironolactone 100 mg PO HS 01/04/21 [History] RX: buPROPion HCL [Wellbutrin SR] 100 mg PO BID 01/04/21 [History] Follow up Appointment(s)/Referral(s): [facility] [NON-STAFF] - 01/17/21 Patient Instructions/Handouts: Esophageal Dilation (DC) Activity/Diet/Wound Care/Special Instructions: Full liquid diet. Pured food allowed. Discharge Disposition: HOME SELF-CARE
[2021-01-08 11:20] VITALS: BP 106/68; PULSE 66; RESP 18
== END 2021-01-08 11:37 | disposition home or self-care (01) ==
LOC: ORWHC2ENDO 09:39
PROVIDERS: ATTEND Surgery Plastic and Reconstructive Surgery
DX: K22.2 Esophageal obstruction (principal); E66.01 Morbid (severe) obesity due to excess calories; E78.5 Hyperlipidemia, unspecified; I10 Essential (primary) hypertension; F41.9 Anxiety disorder, unspecified; F32.9 Major depressive disorder, single episode, unspecified; Z79.899 Other long term (current) drug therapy; Z98.84 Bariatric surgery status; Z88.0 Allergy status to penicillin; Z88.2 Allergy status to sulfonamides; Z91.048 Other nonmedicinal substance allergy status
CPT/HCPCS: 81025; 43245; J2001; J2704; C1726

== ENCOUNTER → 2021-01-09 | Outpatient (CLI) | payer BC ==
[2021-01-09 11:02] LABS: INR 1.1 (<1.2); Prothrombin Time 11.7 sec (9.0-12.0)
[2021-01-09 14:52] LABS: HCT 42.9 % (37.2-46.3); MCH 30.8 pg (27.0-32.0); MCHC 32.6 g/dL (32.0-37.0); MCV 94.5 fL (80.0-97.0); Mean Platelet Volume 11.2 fL (9.5-12.2); Platelet Count 217 X 10*3/uL (140-440); RBC 4.54 X 10*6/uL (4.10-5.20); RDW 14.3 % (11.5-14.5); WBC 6.91 X 10*3/uL (4.50-10.00)
[2021-01-09 17:40] LABS: % Iron Saturation 20.82 (12.00-45.00); ALT 29 U/L (8-44); AST 20 U/L (13-35); African American GFR (CKD) 106.1 (60.0-200.0); Albumin 4.3 g/dL (3.8-4.9); Albumin/Globulin Ratio 2.15 (1.60-3.17); Alkaline Phosphatase 108 U/L (41-126); BUN/Creat Ratio 19.75 Ratio (12.00-20.00); Blood Urea Nitrogen 15.8 mg/dL (9.0-27.0); Calcium 9.6 mg/dL (8.7-10.3); Carbon Dioxide 23.1 mmol/L (20.0-27.5); Chloride 104 mmol/L (96-109); Chol/HDL Ratio 6.68 Ratio; Glucose 86 mg/dL (70-110); Iron 69 ug/dL (50-170); Magnesium 1.9 mg/dL (1.5-2.4); Non-African American GFR(CKD) 91.6 (60.0-200.0); Phosphorus 2.1 mg/dL (2.4-5.1); Potassium 4.4 mmol/L (3.5-5.5); Prealbumin 15.6 mg/dL (18.0-42.0); Sodium 141 mmol/L (135-145); Total Iron Binding Capacity 330 ug/dL (228-460); Total Protein 6.3 g/dL (6.2-8.2)
[2021-01-10 13:51] LABS: Zinc, Serum 78 ug/dL (60-130)
== END | disposition home or self-care (01) ==
LOC: LABWHC1 09:37
PROVIDERS: ATTEND Surgery Plastic and Reconstructive Surgery
DX: E89.1 Postprocedural hypoinsulinemia (principal); D50.8 Other iron deficiency anemias; E44.0 Moderate protein-calorie malnutrition; E55.9 Vitamin D deficiency, unspecified; K74.1 Hepatic sclerosis; N19 Unspecified kidney failure; K50.90 Crohn's disease, unspecified, without complications
CPT/HCPCS: 36415; 80053; 80061; 82306; 82525; 82607; 82728; 82746; 83036; 83540; 83550; 83735; 83970; 84100; 84134; 84255; 84425; 84443; 84590; 84630; 85027; 85610; 85730

== ENCOUNTER → 2021-01-17 | Outpatient (CLI) | payer BC ==
--- NOTE | 2021-01-17 17:03 | P.BASOAP ---
Subjective Progress Note Date: 01/17/21 She has severe stenosis. Recommend EGD with dilation. Assessment/Plan Plan: Date: Initial Weight: 101.179 kg Initial BMI: Current Weight: Current BMI: Type of Surgery: Total Volume in Band: Previous Volume: Volume Removed: Volume Added: Band Size:
[2021-01-17 17:31] VITALS: BP 133/85; PULSE 56; RESP 18; TEMP 98.8; BMI 30.1
== END | disposition home or self-care (01) ==
LOC: BARWHC3 15:40
PROVIDERS: ATTEND Surgery Plastic and Reconstructive Surgery
DX: E66.01 Morbid (severe) obesity due to excess calories (principal); Z68.30 Body mass index [BMI] 30.0-30.9, adult
CPT/HCPCS: 99211

== ENCOUNTER 2021-01-22 06:36 | Day surgery (SDC) | payer BC ==
[2021-01-19 09:09] VITALS: BMI 30.1
[~2021-01-22 06:36] MED LIST changes: -ACETAMINOPHEN TAB 500 MG TAB PO PRN; -CHLORHEXIDINE GLUCONATE 15 ML CUP MUCOUS MEM PRN; -DEXAMETHASONE SOD PHOSPHATE 4 MG/ML 1 ML VIAL IV ONE; -ENOXAPARIN 40 MG/0.4 ML SYRINGE SQ PRN; -GABAPENTIN 300 MG CAP PO PRN; -HYDROmorphone 0.5 MG/0.5 ML SYRINGE IVP PRN; +LACTATED RINGERS 1,000 ML IV SCH; -LIDOCAINE 1% (10MG/ML) FOR IV START INTRADERMA PRN; -MIDAZOLAM 2 MG/2 ML VIAL IV PRN; -ONDANSETRON 4 MG/2 ML VIAL IVP ONE; -PANTOPRAZOLE 40 MG/10 ML VIAL IVP PRN; -SCOPOLAMINE 1.5MG/72HR PATCH TRANSDERM PRN
--- NOTE | 2021-01-22 07:09 | P.GSHP ---
History of Present Illness H&P Date: 01/22/21 CHIEF COMPLAINT: GERD HISTORY OF PRESENT ILLNESS: The patient is a 40-year-old female who presents reports gastroesophageal reflux disease. Upper endoscopy was offered for further evaluation and management. PAST MEDICAL HISTORY: Please see list. PAST SURGICAL HISTORY: Please see list. MEDICATIONS: Please see list. ALLERGIES: Please see list. SOCIAL HISTORY: No illicit drug use FAMILY HISTORY: No reports of Crohn disease or ulcerative colitis. REVIEW OF ORGAN SYSTEMS: CONSTITUTIONAL: No reports of fevers or chills. GI: Denies any blood in stools or constipation. PHYSICAL EXAM: VITAL SIGNS: Stable GENERAL: Well-developed and pleasant in no acute distress. HEENT: No scleral icterus. Extraocular movements grossly intact. Moist buccal mucosa. NECK: Supple without lymphadenopathy. CHEST: Unlabored respirations. Equal bilateral excursions. CARDIOVASCULAR: Regular rate and rhythm. Distal 2+ pulses. ABDOMEN: Soft, nondistended. MUSCULOSKELETAL: No clubbing, cyanosis, or edema. ASSESSMENT: 1. Gastroesophageal reflux disease PLAN: 1. Recommend proceeding with an upper endoscopy Past Medical History Past Medical History: Hyperlipidemia, Hypertension Additional Past Medical History / Comment(s): STATES SHE TAKES PRAZOSIN FOR ANXIETY, TAKES SPIRONOLACTONE FOR ACNE., CARLITOS-EN-Y GASTRIC BYPASS SURGERY 12/04/20-STATES INCISIONS HEALING., STATES TIGHTNESS-FOOD DOES NOT WANT TO GO DOWN. History of Any Multi-Drug Resistant Organisms: None Reported Past Surgical History: Bariatric Surgery, Cholecystectomy Additional Past Surgical History / Comment(s): ROBOTIC ASSISTED LAP CARLITOS-EN-Y GASTRIC BYPASS (12/04/20), EGD Past Anesthesia/Blood Transfusion Reactions: No Reported Reaction Smoking Status: Never smoker - Past Family History Mother Family Medical History: No Reported History Medications and Allergies Home Medications Medication Instructions Recorded Confirmed Type Prazosin [Minipress] 2 mg PO HS 05/17/20 01/19/21 History FLUoxetine HCL [PROzac] 20 mg PO QAM 01/04/21 01/19/21 History Omeprazole [PriLOSEC] 40 mg PO HS 01/04/21 01/19/21 History Spironolactone 100 mg PO HS 01/04/21 01/19/21 History buPROPion HCL [Wellbutrin SR] 100 mg PO BID 01/04/21 01/19/21 History Allergies Allergy/AdvReac Type Severity Reaction Status Date / Time adhesive Allergy Rash/Hives Verified 01/22/21 07:05 Penicillins Allergy Rash/Hives Verified 01/22/21 07:05 sulfamethoxazole Allergy Rash/Hives Verified 01/22/21 07:05 [From Bactrim] trimethoprim [From Bactrim] Allergy Rash/Hives Verified 01/22/21 07:05 SURGICAL GLUE Allergy Unknown Rash/Hives Uncoded 01/22/21 07:05
[2021-01-22] MEDS ORDERED: LIDOCAINE 1% (10MG/ML) FOR IV START INTRADERMA ONE (07:15)
[2021-01-22 07:22] VITALS: TEMP 97.1
[2021-01-22] MEDS ORDERED: LIDOCAINE 1% INJ 10MG/ML (20 ML MDV) ONE (07:26)
[2021-01-22] MEDS ORDERED: PROPOFOL 10 MG/ML 20 ML VIAL IV ONE (07:26)
--- NOTE | 2021-01-22 07:41 | P.PCN ---
Date of Procedure: 01/22/21 Description of Procedure: PREOPERATIVE DIAGNOSIS: Dysphagia. Gastrojejunal stricture POSTOPERATIVE DIAGNOSIS: Dysphagia. Gastrojejunal stricture without chronic ulcer without perforation OPERATION: Esophagogastrojejunoscopy with balloon dilatation from 8 to 15 mm. SURGEON: Evi Chowdary MD ANESTHESIA: MAC. INDICATIONS: The patient is a 40-year-old female who presents with dysphagia and gastric stricture. Benefits and risks of the procedure were described. Informed consent was obtained. DESCRIPTION: The patient was brought into the endoscopy suite and laid in the left lateral decubitus position. After a timeout was confirmed, the procedure was initiated. An Olympus gastroscope was passed along the posterior oropharynx down to the distal esophagus where the squamocolumnar junction was unremarkable. The gastric pouch was entered. A gastrojejunal stricture of 8 mm was found as the adult gastroscope was 9.5 mm in size. A Jobdoh balloon dilator was placed through the scope. Final insufflation up to 15 mm was performed with a total of 2 minutes. The scope was advanced up to 50 cm from the incisors into the Guillaume limb. The mucosa of the gastrojejunal anastomosis was intact. Resolved chronic gastrojejunal marginal ulcer was encountered. No full-thickness injury was encountered. The GI tract was desufflated. The patient tolerated the procedure well. FINDINGS: Squamocolumnar junction unremarkable at 37 cm. Stricture of approximately 8 mm encountered. Resolved chronic gastrojejunal ulceration encountered. Successful balloon dilatation to 15 mm. Gastric pouch 5 cm. RECOMMENDATIONS: 1. Continue omeprazole 2. Added Carafate 1 g twice a day Plan - Discharge Summary Discharge Rx Participant: No New Discharge Prescriptions: New Sucralfate [Carafate] 1 gm PO BID #30 tablet Continue Prazosin [Minipress] 2 mg PO HS FLUoxetine HCL [PROzac] 20 mg PO QAM Spironolactone 100 mg PO HS Omeprazole [PriLOSEC] 40 mg PO HS buPROPion HCL [Wellbutrin SR] 100 mg PO BID Discharge Medication List Prazosin [Minipress] 2 mg PO HS 05/17/20 [History] FLUoxetine HCL [PROzac] 20 mg PO QAM 01/04/21 [History] Omeprazole [PriLOSEC] 40 mg PO HS 01/04/21 [History] Spironolactone 100 mg PO HS 01/04/21 [History] buPROPion HCL [Wellbutrin SR] 100 mg PO BID 01/04/21 [History] Sucralfate [Carafate] 1 gm PO BID #30 tablet 01/22/21 [Rx] [facility]ment(s[facility] [facility] [place] [facility] [place] Patient Instructions/Handouts: Esophageal Dilation (DC) Activity/Diet/Wound Care/Special Instructions: Please open, crush, cut tablets larger than size of tic tach. Pured diet. Discharge Disposition: HOME SELF-CARE
[2021-01-22 07:57] VITALS: BP 116/81; PULSE 69; RESP 17
== END 2021-01-22 08:32 | disposition home or self-care (01) ==
LOC: ORWHC2ENDO 06:36
PROVIDERS: ATTEND Surgery Plastic and Reconstructive Surgery
DX: K95.89 Other complications of other bariatric procedure (principal); K21.9 Gastro-esophageal reflux disease without esophagitis; E78.5 Hyperlipidemia, unspecified; I10 Essential (primary) hypertension; F41.9 Anxiety disorder, unspecified; Z90.49 Acquired absence of other specified parts of digestive tract; F32.A Depression, unspecified; Z79.899 Other long term (current) drug therapy; Z88.0 Allergy status to penicillin; Z88.2 Allergy status to sulfonamides; Z91.09 Other allergy status, other than to drugs and biological substances
CPT/HCPCS: 81025; 43249; J2001; J2704; C1726

== ENCOUNTER → 2021-01-25 | Outpatient (CLI) | payer BC ==
--- NOTE | 2021-01-25 15:15 | SFUN ---
SLEEP CENTER FOLLOW UP NOTE DATE OF SERVICE: 01/25/2021 40-year-old lady has been followed in Sleep Clinic to follow treatment of her periodic limb movements and sleepiness. I again reviewed results of sleep study with patient details. Polysomnogram did not show any abnormalities of respiration. It did show leg movements 44.3 per hour with 14.1 micromoles per hour. The patient was tried on Mirapex. MSLT showed borderline results by 5 naps it was mean sleep latency was 12 minutes, by 4 naps, it was minutes, which is slightly below 10 indicates mild sleepiness. So this date I against narcolepsy, but may indicate slight sleepiness during the day. Presently, patient after bariatric surgery, she was 36 pounds and in February she sleeps better. She denied any significant sleepiness while driving the car. [place] Sleepiness Scale is 9 today. During previous visit it was 15. MEDICATIONS: Wellbutrin 200 mg once a day, Prozac in the morning, omeprazole in the morning, spironolactone 100 mg at nighttime. PHYSICAL EXAMINATION: GENERAL: Patient in no distress. BP 120/69, HR 76, RR 15, height 5 feet 7-1/4 inches, weight 189.6 pounds, body mass index 29.4, temperature 96.8, oxygen saturation at room air 97%. NECK: Supple, no JVD. Thyroid is not palpable. LUNGS: Clear to percussion and to auscultation. Good air exchange. No wheezing or rhonchi. HEART: S1, S2 regular. No murmurs, gallops, or rubs. ABDOMEN: Soft and nontender. Bowel sounds are present. No organomegaly appreciated. EXTREMITIES: No clubbing or cyanosis. MOTTLER OPERATOR: Awake, alert, and oriented X3. Cranial nerves 2 to 7 intact. There is no fasciculation or atrophy. noted. No focal deficits observed. IMPRESSION: 1. History of sleepiness by results of MSLT borderline. The patient improved her alertness recently. [place] Sleepiness Scale today is 9 versus 15 during previous visit. 2. Status post gastric bypass December 04, 2020. Patient lost 36 pounds. 3. Periodic limb movements by results of polysomnogram, the patient was tried on treatment with dopaminergic agonists. 4. History of nightmares. 5. History of hypertension in the office. 6. Hyperlipidemia. 7. Anxiety. 8. Depression. 9. Episodes of headaches. 10.Status post cholecystectomy. PLAN: 1. I would suggest to consider change time of taking medications like Prozac to the evening instead of morning and to see if that improves her alertness. 2. Sleep hygiene with regular time in bed for 8 hours. Presently, her sleep schedule from 9:00 pm to 5 a.m. 3. Extreme precautions related to driving. No driving if feeling sleepiness. The patient reported that she does not feel any sleepiness while driving the car at the present time. 4. Patient will continue to lose weight. 5. Follow-up visit in 6 months or earlier if patient has any problems with Sleepiness. Thank you very much for allowing me to participate in management of your patient. Sincerely, Don Sandoval MD, PhD, FAASM Diplomat of [place] [employer] Sleep Medicine Board of [place] [employer] [facility] [place] [id number] / DARVIN: [id number] /
== END | disposition home or self-care (01) ==
LOC: SLEEP 13:33
PROVIDERS: ATTEND Internal Medicine
DX: E78.5 Hyperlipidemia, unspecified (principal); F41.9 Anxiety disorder, unspecified; F32.A Depression, unspecified; Z98.84 Bariatric surgery status

== ENCOUNTER 2021-02-12 07:06 | Day surgery (SDC) | payer BC ==
[2021-02-07 09:10] VITALS: BMI 28.5
[2021-02-12] MEDS ORDERED: LIDOCAINE 1% (10MG/ML) FOR IV START INTRADERMA ONE ×2 (07:30→07:45)
[2021-02-12 07:39] VITALS: TEMP 97.8
--- NOTE | 2021-02-12 07:43 | P.GSHP ---
History of Present Illness H&P Date: 02/12/21 CHIEF COMPLAINT: Esophageal stricture HISTORY OF PRESENT ILLNESS: The patient is a 41-year-old female who presents reports dysphagia. Upper endoscopy was offered for further evaluation and management. PAST MEDICAL HISTORY: Please see list. PAST SURGICAL HISTORY: Please see list. MEDICATIONS: Please see list. ALLERGIES: Please see list. SOCIAL HISTORY: No illicit drug use FAMILY HISTORY: No reports of Crohn disease or ulcerative colitis. REVIEW OF ORGAN SYSTEMS: CONSTITUTIONAL: No reports of fevers or chills. GI: Denies any blood in stools or constipation. PHYSICAL EXAM: VITAL SIGNS: Stable GENERAL: Well-developed and pleasant in no acute distress. HEENT: No scleral icterus. Extraocular movements grossly intact. Moist buccal mucosa. NECK: Supple without lymphadenopathy. CHEST: Unlabored respirations. Equal bilateral excursions. CARDIOVASCULAR: Regular rate and rhythm. Distal 2+ pulses. ABDOMEN: Soft, nondistended. MUSCULOSKELETAL: No clubbing, cyanosis, or edema. ASSESSMENT: 1. Gastric stricture PLAN: 1. Recommend proceeding with an upper endoscopy with dilation. Past Medical History Past Medical History: Hyperlipidemia, Hypertension Additional Past Medical History / Comment(s): STATES SHE TAKES PRAZOSIN FOR ANXIETY, TAKES SPIRONOLACTONE FOR ACNE., CARLITOS-EN-Y GASTRIC BYPASS SURGERY 12/04/20-STATES INCISIONS HEALING., STATES TIGHTNESS-FOOD DOES NOT WANT TO GO DOWN. History of Any Multi-Drug Resistant Organisms: None Reported Past Surgical History: Bariatric Surgery, Cholecystectomy Additional Past Surgical History / Comment(s): ROBOTIC ASSISTED LAP CARLITOS-EN-Y GASTRIC BYPASS (12/04/20), EGD Past Anesthesia/Blood Transfusion Reactions: No Reported Reaction Past Psychological History: Anxiety, Depression Smoking Status: Never smoker Past Alcohol Use History: Rare Past Drug Use History: None Reported - Past Family History Mother Family Medical History: No Reported History Medications and Allergies Home Medications Medication Instructions Recorded Confirmed Type Prazosin [Minipress] 2 mg PO HS 05/17/20 02/07/21 History FLUoxetine HCL [PROzac] 20 mg PO QAM 01/04/21 02/07/21 History Omeprazole [PriLOSEC] 40 mg PO HS 01/04/21 02/07/21 History Spironolactone 100 mg PO HS 01/04/21 02/07/21 History buPROPion HCL [Wellbutrin SR] 100 mg PO BID 01/04/21 02/07/21 History Allergies Allergy/AdvReac Type Severity Reaction Status Date / Time adhesive Allergy Rash/Hives Verified 02/07/21 09:06 Penicillins Allergy Rash/Hives Verified 02/07/21 09:06 sulfamethoxazole Allergy Rash/Hives Verified 02/07/21 09:06 [From Bactrim] trimethoprim [From Bactrim] Allergy Rash/Hives Verified 02/07/21 09:06 SURGICAL GLUE Allergy Unknown Rash/Hives Uncoded 02/07/21 09:06 Surgical - Exam Vital Signs Temp Pulse Resp BP Pulse Ox 97.8 F 65 20 111/72 98 02/12/21 07:37 02/12/21 07:37 02/12/21 07:37 02/12/21 07:37 02/12/21 07:37
[2021-02-12] MEDS ORDERED: PROPOFOL 10 MG/ML 20 ML VIAL IV ONE (07:58)
[2021-02-12] MEDS ORDERED: LIDOCAINE 1% INJ 10MG/ML (20 ML MDV) ONE (07:58)
--- NOTE | 2021-02-12 08:16 | P.PCN ---
Date of Procedure: 02/12/21 Description of Procedure: PREOPERATIVE DIAGNOSIS: Dysphagia. Gastrojejunal stricture POSTOPERATIVE DIAGNOSIS: Dysphagia. Gastrojejunal stricture without chronic ulcer without perforation OPERATION: Esophagogastrojejunoscopy with balloon dilatation from 15 to 20 mm. SURGEON: Evi Chowdary MD ANESTHESIA: MAC. INDICATIONS: The patient is a 40-year-old female who presents with dysphagia and gastric stricture. Benefits and risks of the procedure were described. Informed consent was obtained. DESCRIPTION: The patient was brought into the endoscopy suite and laid in the left lateral decubitus position. After a timeout was confirmed, the procedure was initiated. An Olympus gastroscope was passed along the posterior oropharynx down to the distal esophagus where the squamocolumnar junction was unremarkable. The gastric pouch was entered. A gastrojejunal stricture of 15 mm was found as the adult gastroscope was 9.5 mm in size. A Jumpzter balloon dilator was placed through the scope. Final insufflation up to 20 mm was performed with a total of 2 minutes. The scope was advanced up to 50 cm from the incisors into the Guillaume limb. The mucosa of the gastrojejunal anastomosis was intact. No chronic gastrojejunal marginal ulcer was encountered. No full-thickness injury was encountered. The GI tract was desufflated. The patient tolerated the procedure well. FINDINGS: Squamocolumnar junction unremarkable at 37 cm. Stricture of approximately 15 mm encountered. No chronic gastrojejunal ulceration encountered. Successful balloon dilatation to 20 mm. Gastric pouch 5 cm. RECOMMENDATIONS: 1. Continue omeprazole Plan - Discharge Summary Discharge Rx Participant: No New Discharge Prescriptions: Continue Prazosin [Minipress] 2 mg PO HS FLUoxetine HCL [PROzac] 20 mg PO QAM Spironolactone 100 mg PO HS Omeprazole [PriLOSEC] 40 mg PO HS buPROPion HCL [Wellbutrin SR] 100 mg PO BID Discharge Medication List Prazosin [Minipress] 2 mg PO HS 05/17/20 [History] FLUoxetine HCL [PROzac] 20 mg PO QAM 01/04/21 [History] Omeprazole [PriLOSEC] 40 mg PO HS 01/04/21 [History] Spironolactone 100 mg PO HS 01/04/21 [History] buPROPion HCL [Wellbutrin SR] 100 mg PO BID 01/04/21 [History] Follow up Appointment(s)/Referral(s): [facility],[place] [NON-STAFF] - 02/21/21 Patient Instructions/Handouts: Esophageal Dilation (DC) Discharge Disposition: HOME SELF-CARE
[2021-02-12 08:39] VITALS: BP 104/71; PULSE 68; RESP 16
== END 2021-02-12 09:05 | disposition home or self-care (01) ==
LOC: ORWHC2ENDO 07:06
PROVIDERS: ATTEND Surgery Plastic and Reconstructive Surgery
DX: K31.5 Obstruction of duodenum (principal); E78.5 Hyperlipidemia, unspecified; I11.0 Hypertensive heart disease with heart failure; Z98.84 Bariatric surgery status; F41.9 Anxiety disorder, unspecified; F32.9 Major depressive disorder, single episode, unspecified; Z79.899 Other long term (current) drug therapy; Z88.0 Allergy status to penicillin; Z88.2 Allergy status to sulfonamides; Z91.048 Other nonmedicinal substance allergy status
CPT/HCPCS: 81025; 43245; J2001; J2704; C1726

== ENCOUNTER → 2021-05-30 | Outpatient (CLI) | payer BC ==
[2021-05-30 16:38] LABS: Prothrombin Time 10.8 sec (9.0-12.0)
--- NOTE | 2021-05-30 16:46 | P.BASOAP ---
Subjective Progress Note Date: 05/30/21 She comes in with weight loss. She does not have any sleep apnea anymore. No food getting stuck. No heartburn. She did her labs. Hair loss is happening. Goal is 75 grams. Daily. Exercise is limited. Reasons for hair loss reviewed. Assessment/Plan Plan: Date: Initial Weight: 101.179 kg Initial BMI: Current Weight: 80.286 kg Current BMI: 27.7 Type of Surgery: Total Volume in Band: Previous Volume: Volume Removed: Volume Added: Band Size:
[2021-05-30 23:40] LABS: HCT 50.5 % (37.2-46.3); HGB 16.5 g/dL (12.0-15.0); MCH 30.1 pg (27.0-32.0); MCHC 32.7 g/dL (32.0-37.0); NRBC Per 100 WBC 0 /100 WBCS (0.0-0.0); Platelet Count 265 X 10*3/uL (140-440); RBC 5.49 X 10*6/uL (4.10-5.20); RDW 13.5 % (11.5-14.5); WBC 10.35 X 10*3/uL (4.50-10.00)
[2021-05-30 23:57] LABS: % Iron Saturation 19.05 (12.00-45.00); Iron 81 ug/dL (50-170); Magnesium 2.2 mg/dL (1.5-2.4); Total Iron Binding Capacity 424 ug/dL (228-460)
[2021-05-30 23:58] LABS: ALT 27 U/L (8-44); AST 17 U/L (13-35); African American GFR (CKD) 101.8 (60.0-200.0); Albumin 4.3 g/dL (3.8-4.9); Albumin/Globulin Ratio 1.68 (1.60-3.17); Alkaline Phosphatase 81 U/L (41-126); Blood Urea Nitrogen 25.1 mg/dL (9.0-27.0); Calcium 9.7 mg/dL (8.7-10.3); Carbon Dioxide 22.9 mmol/L (20.0-27.5); Chloride 103 mmol/L (96-109); Globulin 2.5 g/dL (1.6-3.3); Glucose 79 mg/dL (70-110); Non-African American GFR(CKD) 87.9 (60.0-200.0); Phosphorus 2.8 mg/dL (2.4-5.1); Potassium 4.1 mmol/L (3.5-5.5); Sodium 137 mmol/L (135-145); Total Bilirubin <0.15 mg/dL (0.30-1.20); Total Protein 6.8 g/dL (6.2-8.2)
[2021-05-31 00:02] LABS: Chol/HDL Ratio 3.93 Ratio; LDL Cholesterol,Calculated 91.5 mg/dL (0.0-131.0); Prealbumin 21.8 mg/dL (18.0-42.0)
[2021-05-31 10:27] VITALS: BP 135/85; PULSE 78; TEMP 98.2; BMI 25.9
[2021-05-31 12:43] LABS: Zinc, Serum 58 ug/dL (60-130)
[2021-06-01 08:13] LABS: Vit B1(Thiamine) 94 ug/L (38-122)
[2021-06-01 12:37] LABS: Vitamin A 74 ug/dL (38-106)
== END | disposition home or self-care (01) ==
LOC: BARWHC3 15:17
PROVIDERS: ATTEND Surgery Plastic and Reconstructive Surgery
DX: E66.01 Morbid (severe) obesity due to excess calories (principal); E89.1 Postprocedural hypoinsulinemia; D50.8 Other iron deficiency anemias; D50.9 Iron deficiency anemia, unspecified; E44.0 Moderate protein-calorie malnutrition; E44.1 Mild protein-calorie malnutrition; E45 Retarded development following protein-calorie malnutrition; K74.1 Hepatic sclerosis; N19 Unspecified kidney failure; T56.894A Toxic effect of other metals, undetermined, initial encounter; K50.90 Crohn's disease, unspecified, without complications
CPT/HCPCS: 80053; 80061; 82306; 82525; 82607; 82728; 82746; 83036; 83540; 83550; 83735; 83970; 84100; 84134; 84255; 84425; 84443; 84590; 84630; 85027; 85610; 85730; 97803; 99211

== ENCOUNTER → 2021-07-26 | Outpatient (CLI) | payer BC ==
--- NOTE | 2021-07-26 11:17 | P.PN ---
Subjective DATE: 07/26/2021 FOLLOW UP VISIT. 41-year-old lady has been followed in the sleep center for treatment of your excessive daytime sleepiness and tach periodic limb movements. Previously she was tried on treatment with Mirapex. At the present time patient feels better no significant excessive daytime sleepiness .[place] sleepiness scale is 9. No complaints on periodic limb movements during the sleep. Recently patient had a gastric bypass surgery and since surgery she lost 36 pounds before the previous visit and another 37 pounds during this visit. She feels better after losing weight. MEDICATIONS:1. Bupropion 150 mg twice a day 2. Fluoxetine 20 mg once a day. During physical exam: GENERAL: A pleasant patient without any distress. VITAL SIGNS: BP 119/81, HR 72, RR 16 , weight 152.8, temperature to 6.7, oxygen saturation at room air 98% . HEENT: PERRLA, EOMI. NECK: Supple. No JVD. LUNGS: Clear to percussion and to auscultation. Good air exchange. No wheezing or rhonchi. HEART: S1, S2 regular. ABDOMEN: Soft and nontender.[] EXTREMITIES: No clubbing or cyanosis. CABIN WORKER: Awake, alert, and oriented x3. No focal deficit. Impressions: 1. Periodic limb movements by results of previous polysomnogram, no significant clinical symptoms at the present time. 2. History of sleepiness presently patient improved he'll of alertness. 3. Status post gastric bypass in November 2019. 4. Hyperlipidemia. 5. Anxiety. 6. Depression. 7. Episodes of headaches in the past. 8. Status post cholecystectomy. Plan: 1. Sleep hygiene with regular time in bed for at least 8 hours. 2. Precautions related to driving. No driving if feel any sleepiness. 3. Follow up visit in 12 months or earlier if patient has any problems. 4. Watching weight. Thank you very much for allowing me to participate in the management of your patient. Don Sandoval MD, PhD, FAASM. Diplomat of [place] [employer], Sleep Medicine Board by [place] [employer] [facility] [place]
== END ==
LOC: SLEEP 10:44
PROVIDERS: ATTEND Internal Medicine
DX: G47.10 Hypersomnia, unspecified (principal); G47.61 Periodic limb movement disorder; E78.5 Hyperlipidemia, unspecified; F41.9 Anxiety disorder, unspecified; F32.A Depression, unspecified; Z90.49 Acquired absence of other specified parts of digestive tract; Z91.048 Other nonmedicinal substance allergy status; Z88.0 Allergy status to penicillin; Z88.2 Allergy status to sulfonamides

== ENCOUNTER → 2021-11-05 | Outpatient (CLI) | payer BC ==
[2021-11-05 09:41] LABS: Partial Thromboplastin Time 23.4 sec (22.0-30.0); Prothrombin Time 10.6 sec (9.0-12.0)
[2021-11-05 14:28] LABS: HCT 41.9 % (37.2-46.3); HGB 13.9 g/dL (12.0-15.0); MCH 30.7 pg (27.0-32.0); MCHC 33.2 g/dL (32.0-37.0); MCV 92.5 fL (80.0-97.0); Mean Platelet Volume 9.7 fL (9.5-12.2); NRBC Per 100 WBC 0 /100 WBCS (0.0-0.0); Platelet Count 243 X 10*3/uL (140-440); RBC 4.53 X 10*6/uL (4.10-5.20); RDW 13.3 % (11.5-14.5); WBC 7.18 X 10*3/uL (4.50-10.00)
[2021-11-05 14:38] LABS: ALT 36 U/L (8-44); AST 27 U/L (13-35); African American GFR (CKD) 123.9 (60.0-200.0); Albumin 4.2 g/dL (3.8-4.9); Albumin/Globulin Ratio 1.75 (1.60-3.17); Alkaline Phosphatase 56 U/L (41-126); BUN/Creat Ratio 26.14 Ratio (12.00-20.00); Blood Urea Nitrogen 18.3 mg/dL (9.0-27.0); Calcium 9.2 mg/dL (8.7-10.3); Carbon Dioxide 22.4 mmol/L (20.0-27.5); Chloride 105 mmol/L (96-109); Globulin 2.4 g/dL (1.6-3.3); Glucose 126 mg/dL (70-110); Iron 163 ug/dL (50-170); Magnesium 2.1 mg/dL (1.5-2.4); Non-African American GFR(CKD) 106.9 (60.0-200.0); Phosphorus 2.1 mg/dL (2.4-5.1); Sodium 137 mmol/L (135-145); Total Bilirubin <0.15 mg/dL (0.30-1.20); Total Iron Binding Capacity 447 ug/dL (228-460); Total Protein 6.6 g/dL (6.2-8.2)
[2021-11-05 15:16] LABS: Prealbumin 26.4 mg/dL (18.0-42.0)
[2021-11-06 14:24] LABS: Zinc, Serum 83 ug/dL (60-130)
[2021-11-07 05:54] LABS: Vitamin A 66 ug/dL (38-106)
== END | disposition home or self-care (01) ==
LOC: LABWHC1 08:46
PROVIDERS: ATTEND Surgery Plastic and Reconstructive Surgery
DX: E66.01 Morbid (severe) obesity due to excess calories (principal); E89.1 Postprocedural hypoinsulinemia; D50.8 Other iron deficiency anemias; D50.9 Iron deficiency anemia, unspecified; K91.2 Postsurgical malabsorption, not elsewhere classified; E44.0 Moderate protein-calorie malnutrition; E44.1 Mild protein-calorie malnutrition; E45 Retarded development following protein-calorie malnutrition; E46 Unspecified protein-calorie malnutrition; E55.9 Vitamin D deficiency, unspecified; K74.1 Hepatic sclerosis; N19 Unspecified kidney failure; T56.894A Toxic effect of other metals, undetermined, initial encounter; K50.90 Crohn's disease, unspecified, without complications
CPT/HCPCS: 36415; 80053; 80061; 82306; 82525; 82607; 82728; 82746; 83036; 83540; 83550; 83735; 83970; 84100; 84134; 84255; 84425; 84443; 84590; 84630; 85027; 85610; 85730